=== PATIENT | male | born 1950 | race Caucasian/White ===

== ENCOUNTER 2018-01-27 10:33 | Inpatient (IN) | payer MEDICARE, OTHER ==
[2018-01-27 11:09] LABS: #Lymphocytes 0.8 thou/uL (1.20-3.40); #Monocytes 0.9 thou/uL (0.11-0.59); #Neutrophils 14.3 thou/uL (1.40-6.50); %Eosinophils 0.2 % (0.0-10.0); %Monocytes 5.4 % (0.0-10.0); %Neutrophils 89.4 % (42.0-75.0); Hemoglobin 11.5 g/dL (14.0-18.0); Mean Corpuscular HGB CONC 34.8 g/dL (32.0-36.0); Mean Corpuscular Hemoglobin 31.7 pg (27.0-31.0); Mean Corpuscular Volume 91.1 fL (78.0-98.0); Mean Platelet Volume 6.5 fL (7.4-10.4); Platelet Count 215 thou/uL (130-400); RBC Distribution Width 13.7 % (11.5-14.5); Red Blood Cell (RBC) Count 3.61 mill/uL (4.70-6.10)
[2018-01-27] MEDS ORDERED: Acetaminophen 500 MG TAB ONE ×2 (11:25→17:08)
[2018-01-27 11:30] LABS: Bilirubin Negative (Negative); Blood, Urine Moderate (Negative); Clarity CLOUDY (Clear); Glucose, Urine (Dipstick) Negative (Negative); Leukocyte Moderate (Negative); Nitrite Negative (Negative); Protein, Urine (Dipstick) Trace mg/dL (Neg-Trace); Specific Gravity, Urine 1.017 (1.002-1.036); Urobilinogen 0.2 mg/dL (0.2-1.0)
[2018-01-27 11:33] LABS: Bacteria/HPF None Seen HPF (None Seen); Hyaline Casts/LPF 4-6 HYALINE CAST LPF (0-3 Hyaline); Pathc Cast-AUWi Flag 1.16 (0-2.49); Squamous Epithelial 0-3 HPF (0-3); WBC/HPF 21-50 HPF (0-3)
[2018-01-27 11:37] LABS: ALT (SGPT) 15 U/L (8-55); AST (SGOT) 48 U/L (5-34); Albumin 3.9 g/dL (3.4-4.8); Alkaline Phosphatase 602 U/L (40-150); Anion Gap 19 mmol/L (10-20); BUN (Urea Nitrogen) 69 mg/dL (8.4-25.7); Calc. Creatinine Clearance 0 mL/min (70-130); Calcium 10.3 mg/dL (7.8-10.44); Carbon Dioxide 22 mmol/L (23-31); Chloride 91 mmol/L (98-107); Estimated GFR-MDRD 19; Globulin 3.4 g/dL (2.4-3.5); Glucose 116 mg/dL (80-115); Potassium 3.5 mmol/L (3.5-5.1); Protein, Total 7.3 g/dL (5.8-8.1); Sodium 128 mmol/L (136-145)
[2018-01-27] MEDS ORDERED: cefTRIAXone\\ROCEPHIN 2 GM in Sodium Chloride 0.9% 100 ML IVPB ONE (11:45)
--- NOTE | 2018-01-27 11:57 | RAD ---
PORTABLE CHEST 1 VIEW: Date: 01/27/18 Time: 1031 hours HISTORY: Prostate cancer. Patient finished antibiotics for recent UTI. Low back pain. FINDINGS: The heart size is normal. No lobar consolidation, pneumothoraces, or pleural effusions are seen. IMPRESSION: No evidence of acute cardiopulmonary process. POS: OFF
[2018-01-27] MEDS ORDERED: Sodium Chloride 0.9% 0 ML ONE (12:01)
[2018-01-27] MEDS ORDERED: cefTRIAXone\\ROCEPHIN 2 GM VIAL ONE (12:01)
--- NOTE | 2018-01-27 17:30 | HP ---
DATE OF ADMISSION: 01/27/2018 PRIMARY CARE PHYSICIAN: Patient follows [facility]. CHIEF COMPLAINT: Generalized weakness with fever and chills of 1-day duration. HISTORY OF PRESENT ILLNESS: The patient is a 67-year-old male with prostate cancer, chronic urinary retention with indwelling Zurita catheter, presented to the emergency room with above complaint. Approximately 10 years ago, the patient was diagnosed with prostate cancer. He is currently followed by urologist at [facility]. Over the last 1 year, the patient has indwelling Zurita catheter. Approximately 4-5 days ago, the patient had problems with the Zurita catheter and he discontinued it. He had diffi culty urinating over the weekend. Over the last 24 hours or so, the patient started having fever, ch ills with generalized weakness. He also had some flank pain over the left. No nausea, vomiting, federico phoresis, cough, shortness of breath, wheezing, skin rash reported. He denies any hematuria or dysur ia. Two weeks ago, he was diagnosed with UTI, which was treated as outpatient. He is unable to reca ll the antibiotic name. In the emergency room, his initial vital signs showed temperature of 103.2, respiration 19, pulse rat e of 116 with blood pressure of 117/77 with O2 saturation 97% on room air. He received IV fluids wit h gentamicin and ceftriaxone in the emergency room. PAST MEDICAL HISTORY: 1. Prostate cancer diagnosed 10 years ago. 2. Familial tremors. 3. Hypertension. 4. Degenerative joint disease. PAST SURGICAL HISTORY: Right wrist surgery. ALLERGIES: No known drug allergies. CURRENT HOME MEDICATIONS: Per ER list, the patient is on lisinopril/HCTZ, aspirin, finasteride, Flom ax, and Colace. SOCIAL HISTORY: The patient currently lives at home with family. He ambulates with the help of a ca ne. He chews tobacco. Denies smoking. Drinks alcohol socially. Denies any drug use. FAMILY HISTORY: Positive for familial tremors. REVIEW OF SYSTEMS: The following complete review of systems was negative, unless otherwise mentioned in the HPI or below: Constitutional: Weight loss or gain, ability to conduct usual activities. Skin: Rash, itching. Eyes: Double vision, pain. ENT/Mouth: Nose bleeding, neck stiffness, pain, tenderness. Cardiovascular: Palpitations, dyspnea on exertion, orthopnea. Respiratory: Shortness of breath, wheezing, cough, hemoptysis, fever or night sweats. Gastrointestinal: Poor appetite, abdominal pain, heartburn, nausea, vomiting, constipation, or diarrhea. Genitourinary: Urgency, frequency, dysuria, nocturia. Musculoskeletal: Pain, swelling. Neurologic/Psychiatric: Anxiety, depression. Allergy/Immunologic: Skin rash, bleeding tendency. PHYSICAL EXAMINATION: VITAL SIGNS: As discussed above. GENERAL: A 67-year-old male with tachycardia and fever. HEENT: Head atraumatic, normocephalic. Sclerae are anicteric. Moist mucous membrane, no oral lesio n. NECK: Supple, no JVD, no carotid bruit. LUNGS: Essentially clear to auscultation bilaterally. No wheezing, rales or rhonchi. HEART: S1, S2 present. Tachycardic. No heaves or pulsation noted. ABDOMEN: Soft, nontender, bowel sounds present. There was some flank tenderness on the left. SKIN: Warm and dry. EXTREMITIES: No edema or calf tenderness. PERIPHERAL VASCULAR: Radial pulses palpable bilaterally. MUSCULOSKELETAL: No joint swelling or tenderness. NEUROLOGIC: Grossly nonfocal, moves all four extremities. PSYCHIATRIC: Alert, awake, oriented x3. PERIPHERAL VASCULAR: Radial pulses palpable bilaterally. MUSCULOSKELETAL: No joint swelling or tenderness. DIAGNOSTIC FINDINGS: EKG by my review showed sinus tachycardia with premature ventricular complex. Chest x-ray by my review was negative for infiltrate or edema. LABORATORY DATA: CBC showed WBC 16.0 with hemoglobin 11.5, hematocrit 32.9, platelet count of 215, n eutrophils 89.4. Chemistries showed sodium 128, potassium 3.5, chloride 91, bicarbonate 22, BUN 69, creatinine 3.26, alkaline phosphatase 602. Urinalysis showed 21-50 wbc's with moderate leukocyte est erase, no bacteria was seen, it showed hyaline cast. Chest x-ray by my review as discussed above. IMPRESSION AND PLAN: 1. Sepsis secondary to urinary tract infection/acute pyelonephritis. 2. Chronic urinary retention with indwelling Zurita catheter. Please note that patient removed Zurita catheter 4 days ago without seeking medical attention. 3. Acute kidney injury. Baseline creatinine unknown. 4. Hyponatremia. 5. Metabolic acidosis, probably secondary to renal failure. 6. Elevated alkaline phosphatase of unclear etiology. 7. Anemia, suspected chronic. MCV was 91.1. 8. Familial tremors. 9. Hypertension. 10. Sinus tachycardia with occasional premature ventricular contractions. 11. Generalized weakness and fatigue secondary to #1. 12. Degenerative joint disease. The patient denies any NSAIDs. 13. History of prostate cancer. PLAN: The patient will be monitored on the telemetry unit. We will continue aggressive IV hydration . Zurita catheter has been placed. The patient had approximately 700 mL urine output per verbal repo rt. We will consult Infectious Disease and Urology. Blood and urine cultures have been sent. He re ceived ceftriaxone and gentamicin. We will start him on vancomycin and meropenem for possible ESBL U TI. We will change meropenem to a different antibiotic based on the cultures. We will hold lisinopr il/HCTZ due to acute kidney injury. Renal stone protocol has been done, report pending at this time. We will continue Flomax and finasteride. Plan of care was discussed with the patient in detail. He stated understanding.
--- NOTE | 2018-01-27 17:32 | CT ---
CT OF ABDOMEN AND PELVIS NONCONTRAST RENAL CALCULUS PROTOCOL 01/27/18 INDICATION: Urosepsis. TECHNIQUE: Per ordering physician request, noncontrast CT exam performed utilizing renal calculus protocol. FINDINGS: There is bilateral retroperitoneal/perinephric fat stranding more pronounced on the right. There is p unctate right urolithiasis localizing to the lower pole right renal collecting system. There is minim al prominence of each renal collecting system. Urinary bladder is decompressed with an indwelling Fol ey catheter and presumed iatrogenic air related to the catheter. The solid abdominal viscera is limit ed in assessment without IV contrast administration. Patchy opacities are seen at the lung bases bila terally. There is mild pleural based density at each lung base. Punctate hypoattenuation of the right hepatic lobe is too small to further characterize. There is scattered vascular disease. Enlarged lym ph nodes of the retroperitoneum are present, incompletely evaluated. There is diffuse osseous heterog eneity with mixed areas of sclerosis and lucency. Prostate gland is enlarged with calcification. Scattered mild ascites is present. IMPRESSION: 1. Bulky retroperitoneal adenopathy. Findings are concerning for malignant process such as lymph cheryl versus metastatic disease. 2. Diffuse abnormal heterogeneity of the osseous structures containing mixed lytic and sclerotic appearance concerning for metastatic process. 3. Urolithiasis localizing to the lower pole right kidney. RECOMMENDATIONS: For the abnormal bone findings, recommend whole body bone scan to further evaluate. For the abnormal soft tissue densities, presumably adenopathy of the retroperitoneum, recommend follo wup with contrast enhanced CT abdomen and pelvis. Code T POS: NICOLA
[2018-01-27] MEDS ORDERED: Ondansetron ODT 4 MG TAB SL PRN (17:55)
[2018-01-27] MEDS ORDERED: Acetaminophen 325 MG TAB PO PRN (17:55)
[2018-01-27] MEDS ORDERED: Ondansetron HCl/PF 4 MG/2 ML Vial IVP PRN ×2 (17:55→17:56)
[2018-01-27] MEDS ORDERED: Sodium Chloride 0.9% 1,000 ML IV SCH (17:55)
[2018-01-27] MEDS ORDERED: cloNIDine 0.1 MG TAB PO PRN (17:56)
[2018-01-27] MEDS ORDERED: Labetalol HCl 100 MG/20 ML VIAL SLOW IVP PRN (17:56)
[2018-01-27] MEDS ORDERED: Ondansetron ODT 4 MG TAB PO PRN (17:56)
[2018-01-27] MEDS ORDERED: Vancomycin HCl 1 GM in Premix Bag 1 BAG IVPB SCH ×2 (17:56→18:00)
[2018-01-27] MEDS ORDERED: Calcium Carbonate 500 MG ChewTAB PO PRN (17:56)
[2018-01-27] MEDS ORDERED: Vancomycin HCl 1.5 GM in Sodium Chloride 0.9% 250 ML 300 ML IVPB SCH (18:30)
[2018-01-27] MEDS: Sodium Chloride 0.9% 1,000 ML IV SCH (18:54)
[2018-01-27] MEDS: MEROPENEM 1 GM/50 ML 1 GM in Premix Bag 1 BAG IVPB SCH (21:37)
[2018-01-27] MEDS: Tamsulosin HCl 0.4 MG CAP PO SCH (21:39)
[2018-01-27] MEDS: Famotidine 20 MG TAB PO SCH (21:39)
[2018-01-27] MEDS: Heparin 5,000 UNITS/ML VIAL SC SCH (21:44)
[2018-01-28] MEDS: Sodium Chloride 0.9% 1,000 ML IV SCH ×2 (03:23→03:53)
[2018-01-28] MEDS: Acetaminophen 325 MG TAB PO PRN ×4 (03:43→15:47)
[2018-01-28 05:16] LABS: #Lymphocytes 0.6 thou/uL (1.20-3.40); #Monocytes 0.7 thou/uL (0.11-0.59); #Neutrophils 8.9 thou/uL (1.40-6.50); %Eosinophils 0.1 % (0.0-10.0); %Lymphocytes 5.6 % (21.0-51.0); %Monocytes 6.7 % (0.0-10.0); %Neutrophils 87.6 % (42.0-75.0); Mean Corpuscular HGB CONC 34.9 g/dL (32.0-36.0); Mean Corpuscular Hemoglobin 31.7 pg (27.0-31.0); Mean Corpuscular Volume 90.6 fL (78.0-98.0); Mean Platelet Volume 6.6 fL (7.4-10.4); Platelet Count 157 thou/uL (130-400); RBC Distribution Width 13.6 % (11.5-14.5); Red Blood Cell (RBC) Count 2.85 mill/uL (4.70-6.10); White Blood Cell (WBC) Count 10.1 thou/uL (4.8-10.8)
[2018-01-28 05:34] LABS: Albumin 2.9 g/dL (3.4-4.8); Anion Gap 11 mmol/L (10-20); BUN (Urea Nitrogen) 45 mg/dL (8.4-25.7); BUN/Creatinine Ratio 30.61; Calc. Creatinine Clearance 65 mL/min (70-130); Calcium 8.1 mg/dL (7.8-10.44); Carbon Dioxide 23 mmol/L (23-31); Chloride 98 mmol/L (98-107); Estimated GFR-MDRD 48; Glucose 163 mg/dL (80-115); Phosphorus 2.4 mg/dL (2.3-4.7); Potassium 2.2 mmol/L (3.5-5.1); Sodium 130 mmol/L (136-145)
[2018-01-28] MEDS: Famotidine 20 MG TAB PO SCH ×2 (08:40→20:48)
[2018-01-28] MEDS: Finasteride 5 MG TAB PO SCH (08:40)
[2018-01-28] MEDS: MEROPENEM 1 GM/50 ML 1 GM in Premix Bag 1 BAG IVPB SCH (08:53)
[2018-01-28] MEDS: Heparin 5,000 UNITS/ML VIAL SC SCH ×2 (11:06→20:48)
[2018-01-28] MEDS: NS 0.9% w/ 20 MEQ KCL 1,000 ML/1,000 ML BAG IV SCH ×4 (11:12→20:51)
--- NOTE | 2018-01-28 12:20 | CON ---
DATE OF CONSULTATION: 01/28/2018 REASON FOR CONSULTATION: Consultation was requested for retention and presumed urosepsis. HISTORY OF PRESENT ILLNESS: The patient is a 67-year-old gentleman with a confusing urologic history, but best he can tell me was about 10 years ago he had a very high PSA, cannot give the actual number and had a prostate biopsy that he is quite sure was positive; however, they did not recommend treatment despite his young age. They told him you do not have to worry about trouble for at least 8-10 years, and he continued to be followed. But the patient cannot remember the last time his PSA was checked. In trying to piece together that without records I suspect that he had very low volume, low grade, Darian score on the biopsy that was not sales representative raw fibers of the elevated PSA and therefore probably just had significant BPH; however, it does not sound like his BPH was ever addressed other than with meds. In August of this year, he went into retention and has had a catheter since which was changed a couple of times. About 4-5 days ago, it became blocked, so he just removed it himself. He has not voided since, but he has been leaking and wearing a brief because of that. Then, he started to have fever, chills, nausea, and vomiting as well as loose stools which is all new, so he was admitted in retention with a catheter placed for a large amount and started on IV antibiotics. PAST MEDICAL HISTORY: Significant for the above-mentioned prostate cancer, hypertension, DJD and arthritis. PAST SURGICAL HISTORY: Right wrist broken previously. ALLERGIES: None. MEDICATIONS: Include lisinopril, hydrochlorothiazide, aspirin, finasteride, Flomax, Colace. SOCIAL HISTORY: He chews tobacco, usually just one mouth full a day. I have cautioned him against this. He has never smoked cigarettes, but he has an occasional cigar. He has used no drugs. He has very few alcohol beverages on a routine basis. REVIEW OF SYSTEMS: He ambulates with a cane due to significant arthritis in his knee which he feels also has increased and involves his hip. He did have fever and chills with overall weakness and the loose stool. He has shortness of breath; this is new since he started feeling unwell. Otherwise, he does not normally have this nor any chest pain or cough or reflux. He has never had a colonoscopy. FAMILY HISTORY: Significant for familial tremors. Mother at 82 of heart disease. Dad at 29 of an accident. There is no prostate cancer or colon cancer in his history. 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 PHYSICAL EXAMINATION: 103.2/99.2/most recent 102.9 109/59, 115, 98%RA GENERAL: He is comfortable in the bed and aides are helping to change and clean him up. He is alert and oriented. HEENT: He has no scleral icterus. NECK: No JVD. SKIN: His skin is diaphoretic, but not with significant pallor, no hyperemia. CARDIOVASCULAR: Regular rate and rhythm without murmurs, gallops or rubs, but decreased heart sounds throughout. He was not tachycardic during my exam. LUNGS: Clear to auscultation bilaterally. ABDOMEN: Soft, nondistended, normal bowel sounds. Nontender. : Testes were descended bilaterally without masses. Phallus is uncircumcised without lesions and retracted and without concerns for phimosis and then reduced again. Zurita catheter was in place and ensured that the balloon was not stuck in the prostate and secured appropriately. RECTAL: Digital rectal exam revealed an enlarged prostate that was flat-- concerning for sidewall fixation, firm with some induration, but no obvious cancer nodules noted. EXTREMITIES: He had no lower extremity edema. LABORATORY DATA: Reveal a white count has come down from 16 to 10 and anemia that is worsened with hydration to 9.0 and 25.9. BUN and creatinine which is improved. He was 3.26 with his creatinine on admission, now it is 1.47. He is hypokalemic at 2.2. Urinalysis upon admission showed 21-50 WBCs, 7-10 RBCs, no bacteria and 0-3 squamous cells, but the culture is already growing nonheme strep with speciation and sensitivities pending. CT scan from 01/27/2018 which was reviewed personally without contrast showed small stone debris in the bladder and a 5 x 1 mm right lower pole stone. The Zurita was also in the bladder and is relatively decompressed with an enlarged prostate. There was concern for retroperitoneal lymphadenopathy. There was no obvious pelvic or obturator nodes, but the prostate was enlarged. There was also concern for diffuse osseous heterogeneity with mixed sclerosis and lucency. ASSESSMENT AND PLAN: A 67-year-old male with a confusing history of which I would greatly benefit from having his prior records. [facility] but I suspect he had low grade low volume disease 10 years ago after pursuing an elevated PSA which is most likely related to enlarged prostate and bladder outlet obstruction who now has recent retention and inability to void. He went into renal failure and sepsis when the catheter was not replaced, after he removed it 4 to [address] scan and SHE[place]LEY are concerning for significant cancer though. Continue indwelling. Continue IV antibiotics, get prior records, get PSA and monitor for now. [facility]
[2018-01-28] MEDS: cefTRIAXone\\ROCEPHIN 2 GM in Sodium Chloride 0.9% 100 ML IVPB SCH (15:45)
[2018-01-28 17:54] LABS: Potassium 3.5 mmol/L (3.5-5.1)
[2018-01-28] MEDS ORDERED: Vancomycin HCl 1.5 GM in Sodium Chloride 0.9% 250 ML 300 ML IVPB SCH (19:00)
[2018-01-28] MEDS: Tamsulosin HCl 0.4 MG CAP PO SCH (20:48)
--- NOTE | 2018-01-28 22:16 | PDOC.PN ---
- Subjective Encounter Start Date: 01/28/18 Encounter Start Time: 10:15 Patient seen and examined for Sepsis. Feels better. No new complaints. No overnight events - Objective Resuscitation Status: Resuscitation Status FULL:Full Resuscitation Vital Signs & Weight: Vital Signs (12 hours) Temp Pulse Pulse Pulse Pulse Resp BP 01/28/18 20:00 99.1 F 95 18 01/28/18 16:00 99.3 F 122 H 18 01/28/18 11:38 98.2 F 96 17 01/28/18 11:28 97 101 H 100 92/55 L BP BP BP BP Pulse Ox Pulse Ox 01/28/18 20:00 95/55 L 100 01/28/18 16:00 107/59 L 95 01/28/18 11:38 92/50 L 95 01/28/18 11:28 97/52 L 87/52 L 96 Weight Admit Weight 205 lb 12.8 oz Weight 205 lb 12.8 oz I&O: 01/27/18 01/28/18 01/29/18 06:59 06:59 06:59 Intake Total 770 2340 Output Total 2700 1850 Balance -1930 490 Result Diagrams: 01/29/18 05:03 01/29/18 05:03 Additional Labs: Microbiology 01/27/18 11:15 Urine ramirez catheter Urine Culture - Final Enterococcus faecalis 01/27/18 11:00 Venous blood - Left Hand Blood Culture - Preliminary Gram Positive Cocci 01/27/18 10:59 Venous blood - Left Hand Blood Culture - Preliminary Gram Positive Cocci Laboratory Tests 01/28/18 04:56 Potassium 2.2 L* Radiology Reviewed by me: Yes (CT abd - Retroperitoneal lymphadenopathy) EKG Reviewed by me: Yes (Tele ST) Phys Exam - Physical Examination Constitutional: NAD Neck: no JVD Respiratory: no wheezing, no rales, no rhonchi Symmetrical Cardiovascular: RRR, no rub No heaves/pulsations Gastrointestinal: soft, non-tender, no distention, positive bowel sounds Musculoskeletal: no edema Neurological: non-focal, normal sensation, moves all 4 limbs Psychiatric: normal affect, A&O x 3 Dx/Plan - Plan DVT proph w/SCDs IMPRESSION: 1. Sepsis secondary to urinary tract infection/acute pyelonephritis with bacteremia 2. Chronic urinary retention with indwelling Ramirez catheter. Please note that patient removed Ramirez catheter 4 days ago without seeking medical attention. 3. Acute kidney injury. 4. Hyponatremia/ Hypokalemia/Hypomagnessemia 5. Metabolic acidosis, probably secondary to renal failure. 6. Elevated alkaline phosphatase of unclear etiology. 7. Anemia, suspected chronic. MCV was 91.1. 8. Familial tremors. 9. Hypertension. 10. Sinus tachycardia with occasional premature ventricular contractions. 11. Generalized weakness and fatigue secondary to #1. 12. Degenerative joint disease. The patient denies any NSAIDs. 13. History of prostate cancer. PLAN: * Await Urology/ID input * Cont Atbx * Cont Cardizem PO * Replace electrolytes * Adjust IVF * Cont Flomax Review of Systems - Review of Systems Respiratory: negative: Cough, Dry, Shortness of Breath, Hemoptysis, SOB with Excertion, Pleuritic Pain, Sputum, Wheezing Cardiovascular: negative: chest pain, palpitations, orthopnea, paroxysmal nocturnal dyspnea, edema, light headedness, other - Medications/Allergies Allergies/Adverse Reactions: Allergies Allergy/AdvReac Type Severity Reaction Status Date / Time No Known Allergies Allergy Unverified 01/27/18 11:36 Medications: Current Medications Acetaminophen (Tylenol) 650 mg PO Q4H PRN PRN Reason: Headache/Fever or Pain Last Admin: 01/28/18 15:47 Dose: 650 mg Bicalutamide (Casodex) 50 mg PO DAILY [facility] Calcium Carbonate (Tums) 1,000 mg PO Q4H PRN PRN Reason: Heartburn or Indigestion Clonidine (Catapres) 0.1 mg PO Q4H PRN PRN Reason: Systolic BP > 180 Diltiazem HCl (Cardizem) 30 mg PO TID [facility] Famotidine (Pepcid) 20 mg PO BID [facility] Last Admin: 01/28/18 20:48 Dose: 20 mg Finasteride (Proscar) 5 mg PO DAILY [facility] Last Admin: 01/28/18 08:40 Dose: 5 mg Heparin Sodium (Porcine) (Heparin) 5,000 units SC BID [facility] Last Admin: 01/28/18 20:48 Dose: 5,000 units Potassium Chloride/Sodium Chloride (Ns 0.9% W/ 20 Meq Kcl) 1,000 ml in 1,000 mls @ 150 mls/hr IV .Q6H40M [facility] Last Admin: 01/28/18 20:51 Dose: 1,000 mls Vancomycin HCl 1.5 gm/ Sodium (Chloride) 300 mls @ 200 mls/hr IVPB 1900 [facility] Last Admin: 01/28/18 18:36 Dose: 300 mls Ceftriaxone Sodium 2 gm/ (Sodium Chloride) 100 mls @ 200 mls/hr IVPB 1600 [facility] Last Admin: 01/28/18 15:45 Dose: 100 mls Ketoconazole (Nizoral) 400 mg PO TID [facility] Labetalol HCl (Normodyne) 10 mg SLOW IVP Q4H PRN PRN Reason: Systolic BP > 180 Miscellaneous Medication (Pharmacy To Dose) 1 each IVPB ONE PRN PRN Reason: Pharmacy to dose Stop: 02/26/18 18:07 Ondansetron HCl (Zofran Odt) 4 mg PO Q6H PRN PRN Reason: Nausea/Vomiting Ondansetron HCl (Zofran) 4 mg IVP Q6H PRN PRN Reason: Nausea/Vomiting Potassium Chloride (Klor-Con) 40 meq PO BID-[facility] Last Admin: 01/28/18 15:44 Dose: 40 meq Sodium Chloride (Flush - Normal Saline) 10 ml IVF PRN PRN PRN Reason: Saline Flush Tamsulosin HCl (Flomax) 0.4 mg PO [facility] Last Admin: 01/28/18 20:48 Dose: 0.4 mg
--- NOTE | 2018-01-28 23:43 | CON ---
DATE OF CONSULTATION: 01/28/2018 REASON FOR CONSULTATION: Bacteremia. HISTORY OF PRESENT ILLNESS: A 67-year-old patient apparently with the first admission to this hospit al at least in a while with a history of prior prostate cancer diagnosed 10 years ago followed at [place], familial tremors and hypertension, who developed fever and chills for 1 day before admission. [facility] Zurita catheter and above 4 to 5 days before admission developed some problems with the catheter and the catheter was removed, the patient himself removed it or somebody e lse. The patient obviously had urinary difficulties over the weekend and then developed fever, chill s, weakness, flank pain. Initial findings included temperature 103, respirations 19, O2 sat 97%, BP 117/77, pulse 116. His exam showed clear lungs. Normal heart except for tachycardia. Abdomen is no t distended or tender. There is flank tenderness in the left side. Skin was normal. The initial ite cell count 16,000. Currently, he has essential tremors with the head. He has some headaches. N o visual symptoms, sore throat, odynophagia or dysphagia. No chest pain, no abdominal pain, no joint symptoms. He has chronic back pain which is unchanged. PAST MEDICAL HISTORY: Prostate cancer diagnosed 10 years at the [place] and followed by a urologist at [facility], familial tremors, hypertension, DJD, chronic indwelling Zurita catheter for management of urinar y outflow obstruction. PAST SURGICAL HISTORY: Right wrist surgery. ALLERGIES: None. MEDICATION LIST: Tylenol, Casodex, Tums, Catapres, Cardizem, Pepcid, Proscar, heparin, Nizoral, ritu penem, Zofran, tamsulosin, vancomycin. FAMILY HISTORY: Noncontributory. SOCIAL HISTORY: Current smoker. No IV drug use. Lives with family. PHYSICAL EXAMINATION: VITAL SIGNS: T-max 102.9, currently 98.2, blood pressure 92/50, pulse 96, respirations 17, O2 sat 95 %. GENERAL: Awake, alert, chronic ____ tremors. SKIN: Peripheral IV access and has a Zurita catheter inserted. NECK: No lymphadenopathy. HEENT: Ocular movements conjugate. Oral cavity with moist mucosa with some debris in the oral cavit y. NECK: Supple, no jugular vein distention. LUNGS: With symmetric air entry without crackles or wheezing. CARDIOVASCULAR: S1, S2. Regular rate without murmurs. ABDOMEN: Soft, nondistended or tender. Some back tenderness with mild ____. No joint inflammatory activity. Plantar responses are flexor. No clonus, no edema. Pulses 1+ in dorsalis pedis. NEUROLOGIC: He is awake, oriented and follow commands, good recollection. LABORATORY DATA AND IMAGING DATA: White cell count is down from 16-10, hemoglobin 9, MCV 90, platele ts 157, sodium 130, creatinine 1.47, which is down from admission, AST 48, ALT 15, alkaline phosphata se 66, PSA 1600. Urinalysis with 21-50 wbc's. Microbiology with non-hemolytic strep in urine and 2 sets of blood cultures with gram positive cocci, likely the same organism isolated from urine. The p atient had an abdomen and pelvis CT which demonstrated bulky retroperitoneal adenopathy, heterogeneit y of osseous structures with lytic and sclerotic metastatic process, urolithiasis, but no obstruction . ASSESSMENT: 1. Prostate cancer, likely metastatic to bone and lymph nodes. 2. Urinary obstruction with recent removal of Zurita catheter and then development of sepsis due to A lpha hemolytic streptococcus. PLAN: We will switch him to Rocephin. Continue vancomycin until susceptibility profile of his relea se and that we should improve quickly with relief of obstruction and antimicrobial therapy and hopefu lly transition to oral antimicrobials for discharge planning.
[2018-01-29] MEDS: Acetaminophen 325 MG TAB PO PRN (00:59)
[2018-01-29] MEDS: NS 0.9% w/ 20 MEQ KCL 1,000 ML/1,000 ML BAG IV SCH (04:31)
[2018-01-29 05:34] LABS: #Lymphocytes 0.8 thou/uL (1.20-3.40); #Monocytes 0.6 thou/uL (0.11-0.59); #Neutrophils 7.9 thou/uL (1.40-6.50); %Eosinophils 0.2 % (0.0-10.0); %Lymphocytes 8.2 % (21.0-51.0); %Monocytes 6.7 % (0.0-10.0); %Neutrophils 84.9 % (42.0-75.0); Hemoglobin 9.2 g/dL (14.0-18.0); Mean Corpuscular Hemoglobin 31.2 pg (27.0-31.0); Mean Corpuscular Volume 91.9 fL (78.0-98.0); Mean Platelet Volume 6.8 fL (7.4-10.4); Platelet Count 167 thou/uL (130-400); RBC Distribution Width 13.7 % (11.5-14.5); Red Blood Cell (RBC) Count 2.94 mill/uL (4.70-6.10); White Blood Cell (WBC) Count 9.3 thou/uL (4.8-10.8)
[2018-01-29 05:46] LABS: Albumin 2.8 g/dL (3.4-4.8); Anion Gap 12 mmol/L (10-20); BUN (Urea Nitrogen) 30 mg/dL (8.4-25.7); BUN/Creatinine Ratio 31.25; Calc. Creatinine Clearance 101 mL/min (70-130); Calcium 8.5 mg/dL (7.8-10.44); Carbon Dioxide 23 mmol/L (23-31); Chloride 101 mmol/L (98-107); Estimated GFR-MDRD 78; Glucose 119 mg/dL (80-115); Magnesium 1.4 mg/dL (1.6-2.6); Phosphorus 2.3 mg/dL (2.3-4.7); Sodium 133 mmol/L (136-145)
[2018-01-29 05:50] LABS: Potassium 2.9 mmol/L (3.5-5.1)
[2018-01-29] MEDS ORDERED: Magnesium Sulfate 4 GM in Sodium Chloride 0.9% 250 ML 250 ML IVPB SCH (07:45)
[2018-01-29] MEDS: Finasteride 5 MG TAB PO SCH (09:04)
[2018-01-29] MEDS: Heparin 5,000 UNITS/ML VIAL SC SCH ×2 (09:04→21:10)
[2018-01-29] MEDS: Famotidine 20 MG TAB PO SCH ×2 (09:04→21:10)
[2018-01-29] MEDS: Bicalutamide 50 MG TAB PO SCH (09:08)
--- NOTE | 2018-01-29 12:26 | PRG ---
DATE OF SERVICE: 01/29/2018 Yesterday, I had reviewed getting a PSA with the patient and this came back significantly elevated, so I again spoke with the patient and reviewed what that meant and how I would start ketaconazole and Casodex and anticipate Lupron in approximately 10 days; however, the ketaconazole was not available directly so the pharmacy is still working on this. The Casodex was initiated and for this reason I will also get Oncology involved. They have already been consulted by Dr. Becerra, and I attempted to discuss the plan with them, but was only able to leave a message. I reviewed his past history with the patient again since he is a little less foggy in the head today. He believes that he did not have metastatic disease when he was originally diagnosed. He was given options for treatment, but apparently encouraged to monitor and delay treatment until he was symptomatic. I still do not have records, and I am not really sure of such recommendations as being a standard of care. Regardless, at this time we reviewed how he clearly has metastatic prostate cancer with a poor prognosis in the long run. However, as long as it is hormonally sensitive--as the vast majority of all prostate cancers are initially-- he will improve. He will feel better over the next few months If and when the prostate cancer learns how to replicate without testosterone, which could be anywhere from months to years from now, then he could start to feel poorly again. I discussed how Oncology will be involved to determine whether additional medication (Xtandi) may be beneficial early on versus in a delayed fashion. I also let Oncology know that I do not need further imaging as it will not change my course of treatment currently; they may wish to order a bone scan or something further at this time. I reviewed with the patient how his right knee and hip pain may be related to cancer, and so, it should significantly improve. We also reviewed how his obstruction could be related to cancer, and so could also could improve over the next month or two. We reviewed removing the catheter as an outpatient in 3-6 weeks and attempting voiding trials. We also reviewed CIC, and if he is unable to void at follow up , then he can learn this. I then reviewed the likely course of the natural history of prostate cancer: how it initially responds to hormone treatment, but at some point becomes hormone resistant and usually leads to in two main ways. These are bony lesions with significant pain and/or urinary obstruction with local invasion of the ureteral orifices. We reviewed how renal failure could occur if that happens, and it is a much less painful way to . We also reviewed how he has the option at that time if it does arise to get percutaneous nephrostomy tubes to preserve his renal function. I reviewed how these scenarios are not likely to occur anytime soon, but are something for him to be thinking about and prepare himself, so he can know if he is in that scenario what options he has and would like to choose. He should communicate these to everyone involved including his family. OBJECTIVE: VITAL SIGNS: T-max has only been 100.2 and now 97.7, heart rate in the 90s, satting 93-100% on room air, blood pressure stable at 123/65 and he has put out more than 3 liters over the last 24 hours with yellow urine draining from the catheter. LABORATORY DATA: Laboratory values reveal an improved H&H, a further improved creatinine at now 0.96. Potassium is improved. His urine and blood cultures have all come back for Enterococcus and per Dr. Wang's note he will handle these antibiotics and the course length of time. ASSESSMENT AND PLAN: We have a 67-year-old male admitted with renal failure and urosepsis secondary to retention from metastatic prostate cancer with a PSA of over 1600 improving with IV antibiotics and Zurita catheter drainage only. He should continue the indwelling upon discharge and follow up in the office for a voiding trial. The Lupron can be given by my office or Oncology. I would recommend this starting about day 10 from the start of the Casodex. I would not send him out on the ketaconazole, but only give it to him in house if available in house. I would send him out on Casodex 50 mg daily to be continued at least through the first Lupron injection. I will defer further medications, intervention or further studies per Oncology. (I will be out of town Friday and Friday and have reviewed the case with Dr. Cardoza if there are any acute urological issues that arise). Continue antibiotics per Dr. Wang. Continue tamsulosin and finasteride as he was taking as an outpatient. Continue Casodex and continue it as an outpatient upon discharge. Anticipate follow up in the office for both Lupron either with me or Oncology and anticipate followup with me for a voiding trial in approximately 2-3 weeks after Lupron injection. MTDD
--- NOTE | 2018-01-29 14:35 | CON ---
DATE OF CONSULTATION: 01/29/2018 REASON FOR CONSULTATION: Prostate cancer. HISTORY OF PRESENT ILLNESS: Mr. Owusu is a 67-year-old male who presented to the emergency room for urinary retention. He has a history of elevated PSA that has been monitored by the [facility] over the past 10 years. Earlier this year, he had a Zurita catheter placed for urinary retention. He states it was clotted, so he pulled it out approximately 4 days ago. He then began to have fever. He was admitted for urosepsis and started on antibiotics. He is followed by the [facility] doctor in [place]. He had a PSA performed on this admission which was 1647. Dr. Stafford was consulted and has seen the patient and started Casodex. He had a CT of the abdomen and pelvis which showed retroperitoneal lymphadenopathy consistent with metastatic disease. It was bulky. He also had mixed lytic and sclerotic appearance of his bones on scan. Patient lives by himself in [place]. He has a familiar tremor. He states over the past several weeks, he has gotten progressively weaker to the point that he is now bedridden and has not walked in several days. He denies any chest pain or shortness of breath. No abdominal pain. PAST MEDICAL HISTORY: 1. Adenocarcinoma of the prostate, [place] score 6, 3+3, 2013. 2. Essential tremor. 3. Hypertension. 4. Degenerative joint disease. PAST SURGICAL HISTORY: 1. Prostate biopsy. 2. Wrist surgery. ALLERGIES: No known drug allergies. HOME MEDICATIONS: 1. Aspirin 81 mg daily. 2. Finasteride 5 mg daily. 3. Lisinopril/hydrochlorothiazide daily. 4. Flomax 0.4 mg daily. FAMILY HISTORY: Positive for tremors. SOCIAL HISTORY: He is single. He lives alone. No alcohol, tobacco or illicit drug use. Chews tobacco. REVIEW OF SYSTEMS: Ten point review of systems is negative except for noted in HPI. PHYSICAL EXAMINATION: VITAL SIGNS: Temperature is 97.7, pulse is 97, respiratory rate 18, BP is 123/ 65, he is 95% on room air. GENERAL: Well-developed, well-nourished male in no acute distress. HEENT: Normocephalic, atraumatic. Pupils are equal and reactive to light. NECK: Supple. CARDIOVASCULAR: Regular rate and rhythm. LUNGS: Clear. ABDOMEN: Soft, nontender, bowel sounds are positive. EXTREMITIES: There is no clubbing, cyanosis or edema. SKIN: No rash. HEMATOLOGIC: No petechia or purpura. NEUROLOGIC: Nonfocal. LYMPH: There is no palpable lymphadenopathy. PSYCHIATRIC: The patient was alert and oriented and appropriate. PERTINENT LABORATORY DATA AND IMAGING DATA: Current WBCs are 9.3, hemoglobin 9.2, hematocrit 27, platelet count 167,000, 85% neutrophils, 8% lymphocytes. Sodium is 133, potassium 2.9, chloride 101, CO2 is 23, BUN 30, creatinine 0.96, calcium is 8.5, phosphorus 2.3, magnesium 1.4, total bilirubin is 1.0, AST is 48 , ALT is 15, alkaline phosphatase 602, serum total protein is 7.3, albumin 2.8, globulin 3.4. Prostate is 1647.62. Urine is negative for bacteria. Radiology per HPI. ASSESSMENT: Prostate cancer with likely metastasis to the retroperitoneal lymph nodes and possibly bones. PLAN: The patient has been started on Casodex. We will get a Nuclear Med bone scan to look for metastatic disease in the bones. The patient is extremely weak and feels that he cannot go home to live alone. Case management has been consulted for discharge planning. Patient will be discussed with Dr. Elizondo and further recommendations after the bone scan. Thank you for the consult. SRI
--- NOTE | 2018-01-29 14:53 | PDOC.PN ---
- Subjective Encounter Start Date: 01/29/18 Encounter Start Time: 10:30 Patient seen and examined for Sepsis/Bacteremia. No new complaints. No overnight events - Objective Resuscitation Status: Resuscitation Status FULL:Full Resuscitation MAR Reviewed: Yes Vital Signs & Weight: Vital Signs (12 hours) Temp Pulse Pulse Pulse Resp BP BP 01/29/18 12:10 97.9 F 110 H 20 01/29/18 10:18 117 H 111 H 136/60 114/65 01/29/18 07:10 97.7 F 97 18 01/29/18 04:20 97.8 F 89 18 BP Pulse Ox Pulse Ox Pulse Ox 01/29/18 12:10 115/61 93 L 01/29/18 10:18 94 L 88 L 01/29/18 07:10 123/65 95 01/29/18 04:20 108/55 L 93 L Weight Admit Weight 205 lb 12.8 oz Weight 208 lb I&O: 01/28/18 01/29/18 01/30/18 06:59 06:59 06:59 Intake Total 770 3755 Output Total 2700 3550 Balance -1930 205 Result Diagrams: 01/29/18 05:03 01/29/18 05:03 Additional Labs: Laboratory Tests 01/28/18 01/28/18 01/29/18 04:56 09:15 05:03 Potassium 2.2 L* 2.9 L* Magnesium 1.4 L Prostate Specific Ag 1647.62 H EKG Reviewed by me: Yes (Tele SR) Phys Exam - Physical Examination Constitutional: NAD Respiratory: no wheezing, no rhonchi Cardiovascular: RRR, no rub Gastrointestinal: soft, non-tender, positive bowel sounds Musculoskeletal: no edema Neurological: moves all 4 limbs Dx/Plan - Plan DVT proph w/heparin, DVT proph w/SCDs IMPRESSION: 1. Sepsis secondary to Enterococcus UTI/acute pyelonephritis with bacteremia 2. Chronic urinary retention with indwelling Ramirez catheter. 3. Acute kidney injury. improving 4. Hyponatremia/ Hypokalemia/Hypomagnessemia 5. Prostate Cancer with Metastasis 6. Moderate Protein Calorie Malnutrition 7. Back pain - prob due to mets/UTI PLAN: * Cont IV Vancomycin * Cont Atbx * Cont Cardizem PO * Replace electrolytes * Cont current IVF * Cont Flomax/Finasteride * On Ketoconazole * Add [place] for back pain Microbiology 01/27/18 11:15 Urine ramirez catheter Urine Culture - Final Enterococcus faecalis 01/27/18 11:00 Venous blood - Left Hand Blood Culture - Preliminary Enterococcus species 01/27/18 10:59 Venous blood - Left Hand Blood Culture - Preliminary Enterococcus faecalis Review of Systems - Review of Systems Respiratory: negative: Cough, Dry, Shortness of Breath, Hemoptysis, SOB with Excertion, Pleuritic Pain, Sputum, Wheezing Cardiovascular: negative: chest pain, palpitations, orthopnea, paroxysmal nocturnal dyspnea, edema, light headedness, other - Medications/Allergies Allergies/Adverse Reactions: Allergies Allergy/AdvReac Type Severity Reaction Status Date / Time No Known Allergies Allergy Unverified 01/27/18 11:36 Medications: Current Medications Acetaminophen (Tylenol) 650 mg PO Q4H PRN PRN Reason: Headache/Fever or Pain Last Admin: 01/29/18 00:59 Dose: 650 mg Hydrocodone Bitart/Acetaminophen ([place] 5/325) 1 tab PO Q4H PRN PRN Reason: Moderate Pain (4-6) Bicalutamide (Casodex) 50 mg PO DAILY [facility] Last Admin: 01/29/18 09:08 Dose: 50 mg Calcium Carbonate (Tums) 1,000 mg PO Q4H PRN PRN Reason: Heartburn or Indigestion Clonidine (Catapres) 0.1 mg PO Q4H PRN PRN Reason: Systolic BP > 180 Diltiazem HCl (Cardizem) 30 mg PO TID [facility] Last Admin: 01/29/18 09:04 Dose: 30 mg Famotidine (Pepcid) 20 mg PO BID [facility] Last Admin: 01/29/18 09:04 Dose: 20 mg Finasteride (Proscar) 5 mg PO DAILY [facility] Last Admin: 01/29/18 09:04 Dose: 5 mg Heparin Sodium (Porcine) (Heparin) 5,000 units SC BID [facility] Last Admin: 01/29/18 09:04 Dose: 5,000 units Potassium Chloride/Sodium Chloride (Ns 0.9% W/ 20 Meq Kcl) 1,000 ml in 1,000 mls @ 150 mls/hr IV .Q6H40M [facility] Last Admin: 01/29/18 04:31 Dose: 1,000 mls Vancomycin HCl 1.5 gm/ Sodium (Chloride) 300 mls @ 200 mls/hr IVPB 1900 [facility] Last Admin: 01/28/18 18:36 Dose: 300 mls Ceftriaxone Sodium 2 gm/ (Sodium Chloride) 100 mls @ 200 mls/hr IVPB 1600 [facility] Last Admin: 01/28/18 15:45 Dose: 100 mls Ketoconazole (Nizoral) 400 mg PO TID [facility] Labetalol HCl (Normodyne) 10 mg SLOW IVP Q4H PRN PRN Reason: Systolic BP > 180 Miscellaneous Medication (Pharmacy To Dose) 1 each IVPB ONE PRN PRN Reason: Pharmacy to dose Stop: 02/26/18 18:07 Ondansetron HCl (Zofran Odt) 4 mg PO Q6H PRN PRN Reason: Nausea/Vomiting Ondansetron HCl (Zofran) 4 mg IVP Q6H PRN PRN Reason: Nausea/Vomiting Potassium Chloride (Klor-Con) 40 meq PO BID-[facility] Last Admin: 01/29/18 09:04 Dose: 40 meq Senna/Docusate Sodium (Senokot S) 1 tab PO BID [facility] Sodium Chloride (Flush - Normal Saline) 10 ml IVF PRN PRN PRN Reason: Saline Flush Tamsulosin HCl (Flomax) 0.4 mg PO [facility] Last Admin: 01/28/18 20:48 Dose: 0.4 mg
--- NOTE | 2018-01-29 16:44 | NM ---
HISTORY: Prostate cancer. BONE SCAN: 01/29/18 Delayed whole body images obtained. Extensive and too numerous to count bony metastases seen in the calvarium, mandible, maxilla, numerou s ribs, both right and left scapula, right and left humerus, numerous areas in the lumbar spine, sacr um pelvis, and proximal mid right and left femur. In addition, the sternal metastases also seen. IMPRESSION: Calvarial, spinal, rib, humeral, sternal and femoral metastases. POS: [facility]
[2018-01-29] MEDS: HYDROcodone/Acetaminophen 5/325 mg Tablet PO PRN ×2 (16:56→23:32)
[2018-01-29] MEDS: cefTRIAXone\\ROCEPHIN 2 GM in Sodium Chloride 0.9% 100 ML IVPB SCH (16:57)
[2018-01-29] MEDS ORDERED: NS 0.9% w/ 20 MEQ KCL 1,000 ML/1,000 ML BAG IV SCH ×2 (17:52→18:25)
[2018-01-29 18:24] LABS: #Eosinphils 0.1 thou/uL (0.0-0.7); #Lymphocytes 1.1 thou/uL (1.20-3.40); #Monocytes 1.2 thou/uL (0.11-0.59); #Neutrophils 11.1 thou/uL (1.40-6.50); %Basophils 0.1 % (0.0-1.0); %Eosinophils 0.4 % (0.0-10.0); %Lymphocytes 7.9 % (21.0-51.0); %Monocytes 9.2 % (0.0-10.0); %Neutrophils 82.4 % (42.0-75.0); Hemoglobin 10.3 g/dL (14.0-18.0); Mean Corpuscular HGB CONC 35.3 g/dL (32.0-36.0); Mean Corpuscular Hemoglobin 32.1 pg (27.0-31.0); Mean Platelet Volume 6.6 fL (7.4-10.4); Platelet Count 194 thou/uL (130-400); RBC Distribution Width 13.7 % (11.5-14.5); White Blood Cell (WBC) Count 13.5 thou/uL (4.8-10.8)
[2018-01-29] MEDS: Ampicillin 2 GM in Sodium Chloride 0.9% 100 ML IVPB SCH ×2 (18:43→23:34)
[2018-01-29 18:46] LABS: Anion Gap 12 mmol/L (10-20); BUN (Urea Nitrogen) 26 mg/dL (8.4-25.7); Calc. Creatinine Clearance 104 mL/min (70-130); Calcium 8.7 mg/dL (7.8-10.44); Carbon Dioxide 23 mmol/L (23-31); Chloride 100 mmol/L (98-107); Estimated GFR-MDRD 81; Glucose 149 mg/dL (80-115); Potassium 3.7 mmol/L (3.5-5.1); Sodium 131 mmol/L (136-145)
[2018-01-29 18:49] LABS: Troponin I 0.111 ng/mL (< 0.028)
[2018-01-29 18:49] LABS: Actual Bicarbonate (HCO3a) 21.7 mEq/L (22-28); CO2 Tension 29.8 mmHg (35.0-45.0); Hemoglobin (Hb) 10.5 g/dL (14.0-18.0); O2 Tension (PaO2) 77.6 mmHg (> 80.0); pH, Arterial 7.48 (7.35-7.45)
[2018-01-29 18:50] LABS: Analyzer IN Cardio OR; Calcium, Ionized 1.2 mmol/L (1.12-1.30); Puncture Site RBA
--- NOTE | 2018-01-29 19:25 | RAD ---
FRONTAL RADIOGRAPH CHEST 01/29/18 COMPARISON: 01/27/18 HISTORY: Short of breath. FINDINGS: No pneumothorax, pleural fluid focal consolidation, or alveolar edema. Heart and mediastinal contours are stable. Osseous structures are stable. Nonspecific mild perihilar interstitial prominence noted. IMPRESSION: No focal consolidation or alveolar edema. POS: [facility]
[2018-01-29] MEDS: Tamsulosin HCl 0.4 MG CAP PO SCH (21:10)
[2018-01-29] MEDS: Senokot S 8.6-50 MG TAB PO SCH (21:10)
[2018-01-29 21:54] LABS: Troponin I 0.071 ng/mL (< 0.028)
[2018-01-30] MEDS: HYDROcodone/Acetaminophen 5/325 mg Tablet PO PRN ×4 (03:21→16:19)
[2018-01-30] MEDS: Ampicillin 2 GM in Sodium Chloride 0.9% 100 ML IVPB SCH ×3 (05:29→19:41)
[2018-01-30 05:44] LABS: #Eosinphils 0.1 thou/uL (0.0-0.7); #Lymphocytes 0.9 thou/uL (1.20-3.40); #Monocytes 1.1 thou/uL (0.11-0.59); #Neutrophils 9.5 thou/uL (1.40-6.50); %Eosinophils 0.5 % (0.0-10.0); %Monocytes 9.2 % (0.0-10.0); %Neutrophils 82.3 % (42.0-75.0); Hemoglobin 9.6 g/dL (14.0-18.0); Mean Corpuscular HGB CONC 33.4 g/dL (32.0-36.0); Mean Corpuscular Hemoglobin 30.8 pg (27.0-31.0); Mean Corpuscular Volume 92.1 fL (78.0-98.0); Mean Platelet Volume 6.7 fL (7.4-10.4); Platelet Count 182 thou/uL (130-400); RBC Distribution Width 13.8 % (11.5-14.5); Red Blood Cell (RBC) Count 3.12 mill/uL (4.70-6.10); White Blood Cell (WBC) Count 11.6 thou/uL (4.8-10.8)
[2018-01-30 05:56] LABS: Albumin 2.9 g/dL (3.4-4.8); Anion Gap 11 mmol/L (10-20); BUN (Urea Nitrogen) 23 mg/dL (8.4-25.7); BUN/Creatinine Ratio 25.56; Calc. Creatinine Clearance 108 mL/min (70-130); Calcium 8.6 mg/dL (7.8-10.44); Carbon Dioxide 25 mmol/L (23-31); Chloride 101 mmol/L (98-107); Estimated GFR-MDRD 84; Glucose 113 mg/dL (80-115); Magnesium 1.6 mg/dL (1.6-2.6); Phosphorus 2.2 mg/dL (2.3-4.7); Potassium 3.7 mmol/L (3.5-5.1); Sodium 133 mmol/L (136-145)
[2018-01-30] MEDS ORDERED: Potassium Chloride 20 MEQ TAB PO SCH (08:00)
[2018-01-30] MEDS: Senokot S 8.6-50 MG TAB PO SCH ×2 (09:17→20:51)
[2018-01-30] MEDS: K-Phos Neutral 250 MG TAB PO SCH ×3 (09:22→16:21)
[2018-01-30] MEDS: Heparin 5,000 UNITS/ML VIAL SC SCH ×2 (09:23→20:48)
[2018-01-30] MEDS: Finasteride 5 MG TAB PO SCH (09:23)
[2018-01-30] MEDS: Famotidine 20 MG TAB PO SCH ×2 (09:23→20:49)
[2018-01-30] MEDS: Bicalutamide 50 MG TAB PO SCH (10:30)
--- NOTE | 2018-01-30 13:18 | PDOC.PN ---
- Subjective Encounter Start Date: 01/30/18 Encounter Start Time: 10:00 Patient seen and examined for Sepsis/Bacteremia/Prostate Ca. No CP/SOB. No new complaints. No overnight events - Objective Resuscitation Status: Resuscitation Status FULL:Full Resuscitation MAR Reviewed: Yes Vital Signs & Weight: Vital Signs (12 hours) Temp Pulse Resp BP Pulse Ox 01/30/18 11:35 98.8 F 104 H 18 121/75 92 L 01/30/18 07:52 98.3 F 97 18 94 L 01/30/18 07:49 98.3 F 97 18 123/75 94 L 01/30/18 03:31 98.2 F 97 16 121/73 96 Weight Admit Weight 205 lb 12.8 oz Weight 212 lb I&O: 01/29/18 01/30/18 01/31/18 06:59 06:59 06:59 Intake Total 3755 2710 Output Total 3550 1225 Balance 205 1485 Result Diagrams: 01/30/18 05:04 01/30/18 05:04 Additional Labs: Accuchecks 01/30/18 10:41 POC Glucose 165 H Laboratory Tests 01/29/18 01/29/18 01/29/18 18:14 18:14 21:24 Phosphorus Troponin I 0.111 H 0.071 H B-Natriuretic Peptide 823.4 H 01/30/18 05:04 Phosphorus 2.2 L Troponin I B-Natriuretic Peptide Radiology Reviewed by me: No (Bone scan - Diffuse Mets) EKG Reviewed by me: Yes (Tele SR) Phys Exam - Physical Examination Constitutional: NAD Respiratory: no wheezing, no rales, no rhonchi Cardiovascular: RRR, no rub Gastrointestinal: soft, non-tender, positive bowel sounds Musculoskeletal: no edema Dx/Plan - Plan DVT proph w/SCDs IMPRESSION: 1. Sepsis secondary to Enterococcus UTI/acute pyelonephritis with bacteremia - on IV Ampicillin 2. Chronic urinary retention with indwelling Zurita catheter. Zurita catheter placed in ER 3. Acute kidney injury. improving 4. Hyponatremia/ Hypokalemia/Hypomagnessemia 5. Prostate Cancer with Metastasis - Stated on Casodex 6. Moderate Protein Calorie Malnutrition 7. Back pain - prob due to mets/UTI 8. Elevated troponin prob due to Volume overload r/o CHF (BNP elevated) PLAN: * Cont Atbx * Cont Cardizem PO * Replace Phosphorus * Await Echo * May transfer to Oncology * DC IVF * Cont Flomax/Finasteride * Change Potassium chloride to 20 meq daily * Cont Ketoconazole per Urology * Cont other meds as below * AM labs Review of Systems - Review of Systems Respiratory: negative: Cough, Dry, Shortness of Breath, Hemoptysis, SOB with Excertion, Pleuritic Pain, Sputum, Wheezing Cardiovascular: negative: chest pain, palpitations, orthopnea, paroxysmal nocturnal dyspnea, edema, light headedness, other - Medications/Allergies Allergies/Adverse Reactions: Allergies Allergy/AdvReac Type Severity Reaction Status Date / Time No Known Allergies Allergy Unverified 01/27/18 11:36 Medications: Current Medications Acetaminophen (Tylenol) 650 mg PO Q4H PRN PRN Reason: Headache/Fever or Pain Last Admin: 01/29/18 00:59 Dose: 650 mg Hydrocodone Bitart/Acetaminophen ([place] 5/325) 1 tab PO Q4H PRN PRN Reason: Moderate Pain (4-6) Last Admin: 01/30/18 12:00 Dose: 1 tab Bicalutamide (Casodex) 50 mg PO DAILY [facility] Last Admin: 01/30/18 10:30 Dose: 50 mg Calcium Carbonate (Tums) 1,000 mg PO Q4H PRN PRN Reason: Heartburn or Indigestion Clonidine (Catapres) 0.1 mg PO Q4H PRN PRN Reason: Systolic BP > 180 Diltiazem HCl (Cardizem) 30 mg PO TID [facility] Last Admin: 01/30/18 09:22 Dose: 30 mg Famotidine (Pepcid) 20 mg PO BID [facility] Last Admin: 01/30/18 09:23 Dose: 20 mg Finasteride (Proscar) 5 mg PO DAILY [facility] Last Admin: 01/30/18 09:23 Dose: 5 mg Heparin Sodium (Porcine) (Heparin) 5,000 units SC BID [facility] Last Admin: 01/30/18 09:23 Dose: 5,000 units Ampicillin Sodium 2 gm/ Sodium (Chloride) 100 mls @ 200 mls/hr IVPB Q6HR [facility] Last Admin: 01/30/18 11:37 Dose: 100 mls Potassium Chloride/Sodium Chloride (Ns 0.9% W/ 20 Meq Kcl) 1,000 ml in 1,000 mls @ 50 mls/hr IV .Q20H [facility] Last Admin: 01/29/18 18:45 Dose: 1,000 mls Ketoconazole (Nizoral) 400 mg PO TID [facility] Last Admin: 01/30/18 09:23 Dose: 400 mg Labetalol HCl (Normodyne) 10 mg SLOW IVP Q4H PRN PRN Reason: Systolic BP > 180 Ondansetron HCl (Zofran Odt) 4 mg PO Q6H PRN PRN Reason: Nausea/Vomiting Ondansetron HCl (Zofran) 4 mg IVP Q6H PRN PRN Reason: Nausea/Vomiting Phosphorus (Kphos Neutral) 250 mg PO TID-[facility] Last Admin: 01/30/18 11:43 Dose: 250 mg Potassium Chloride (K-Dur) 20 meq PO BID-[facility] Last Admin: 01/30/18 09:22 Dose: 20 meq Senna/Docusate Sodium (Senokot S) 1 tab PO BID [facility] Last Admin: 01/30/18 09:17 Dose: Not Given Sodium Chloride (Flush - Normal Saline) 10 ml IVF PRN PRN PRN Reason: Saline Flush Tamsulosin HCl (Flomax) 0.4 mg PO [facility] Last Admin: 01/29/18 21:10 Dose: 0.4 mg
--- NOTE | 2018-01-30 17:31 | PRG ---
DATE OF SERVICE: 01/30/2018 SUBJECTIVE: The patient states he is feeling pretty good. He is still very weak, but states he is n ot having any significant pain except on his left hip. He has already been started on Casodex and ke taconazole. He denies any chest pain or shortness of breath. He did undergo a bone scan which showe d diffuse osseous metastatic disease. He has already been seen by Oncology. OBJECTIVE: VITAL SIGNS: Temperature 98.8, pulse 104, respirations 18, blood pressure 121/75, saturation 92% on room air. GENERAL: No apparent distress, somewhat lethargic, communicative and alert otherwise. CARDIOVASCULAR: Sinus tachycardia. ABDOMEN: Soft, nontender, nondistended. EXTREMITIES: No clubbing, cyanosis or edema. LABORATORY EVALUATION: The full set of labs in the [facility] system, which I have reviewed note the p saul's white count is 11.6 with a hemoglobin of 9.6, platelet count of 182. Sodium is 133. Tropon ins are trending down, 0.071 being the last value. PSA had been significantly elevated at 1647. ASSESSMENT AND PLAN: A 67-year-old white male with diffuse metastatic prostate cancer, both in the r etroperitoneal lymph nodes as well as his bony metastatic disease. He is relatively asymptomatic, bu t will likely have early mortality without intervention. I agree with the Casodex and the ketaconazo le. The patient should probably be discharged on ketaconazole and Casodex. However, the ketaconazol e will cause complete androgen suppression and he will need replacement of hydrocortisone and mineral ocorticoids upon discharge to avoid severe adrenal insufficiency and life-threatening hypotension. T hese medications should be started on the third day at minimum of the patient being on ketaconazole t o avoid adrenal insufficiency. Once the patient is switched over to Lupron, he can stop the ketacona zole and allow for normal adrenal production of steroids. The Casodex should be continued until Dr. Stafford has stopped them herself. He should continue his Zurita catheter. Dr. Luis M Fonseca will be see ing the patient over the weekend if there are any issues. If the patient is considered a candidate f or docetaxel or cabazitaxel chemotherapy, he may benefit from a port placement if necessary while in the hospital, but I will leave that to the oncology team.
--- NOTE | 2018-01-30 18:08 | PRG ---
DATE OF SERVICE: 01/30/2018 SUBJECTIVE: Mr. Owusu is upset about the notice of his recrudescence and worsening of disseminated p rostate cancer, otherwise is feeling better in terms of his infection. No shortness of breath, some back pain. No abdominal pain or diarrhea. He has a Zurita catheter in place. OBJECTIVE: VITAL SIGNS: T-max 98.8 and other vital signs are normal except for slight tachycardia. GENERAL: Awake, alert, oriented, and pleasant. LUNGS: Symmetric clear breath sounds. HEART: S1, S2 regular rate. ABDOMEN: Soft, not distended. EXTREMITIES: Moves extremities on command. He is not pleuritic. His white cell count is 11.6, hemoglobin 9.6, platelets 182. Sodium 133, creatinine 0.9. Microbiolo gy with E. faecalis retrieved from 2 sets of blood cultures and one set of urine cultures. ASSESSMENT AND DISCUSSION: Prostate cancer, likely metastatic to bone and lymph nodes, urinary obstr uction after recent removal of Zurita catheter secondary to Enterococcus faecalis. The patient curren tly on ampicillin. Eventually transition to oral amoxicillin for discharge planning. Treat for 2 we eks approximately.
[2018-01-30] MEDS: HYDROcodone/Acetaminophen 7.5/325 mg Tablet PO PRN (20:46)
[2018-01-30] MEDS: Tamsulosin HCl 0.4 MG CAP PO SCH (20:50)
[2018-01-31] MEDS: Ampicillin 2 GM in Sodium Chloride 0.9% 100 ML IVPB SCH ×4 (00:05→18:02)
[2018-01-31] MEDS: HYDROcodone/Acetaminophen 7.5/325 mg Tablet PO PRN ×5 (01:14→21:12)
[2018-01-31] MEDS ORDERED: Magnesium Sulfate 4 GM in Sodium Chloride 0.9% 250 ML 250 ML IVPB SCH (07:30)
[2018-01-31] MEDS ORDERED: Potassium Chloride 20 MEQ TAB PO SCH (08:00)
[2018-01-31] MEDS: Senokot S 8.6-50 MG TAB PO SCH ×2 (10:38→21:45)
[2018-01-31] MEDS: predniSONE 20 MG TAB PO SCH (10:38)
[2018-01-31] MEDS: Fludrocortisone Acetate 0.1 MG TAB PO SCH (10:39)
[2018-01-31] MEDS: Finasteride 5 MG TAB PO SCH (10:39)
[2018-01-31] MEDS: Famotidine 20 MG TAB PO SCH ×2 (10:39→22:30)
[2018-01-31] MEDS: Heparin 5,000 UNITS/ML VIAL SC SCH ×2 (10:40→21:45)
[2018-01-31] MEDS: Polyethylene Glycol 3350 17 GM Packet PO SCH (10:41)
[2018-01-31] MEDS: K-Phos Neutral 250 MG TAB PO SCH ×3 (10:52→16:48)
[2018-01-31] MEDS: Bicalutamide 50 MG TAB PO SCH (11:04)
--- NOTE | 2018-01-31 15:55 | PRG ---
DATE OF SERVICE: 01/31/2018 REASON FOR CONSULTATION: 1. Stage 4 prostate cancer with metastases. 2. Urinary retention. BRIEF HISTORY: Mr. Mono Owusu is a very pleasant 67-year-old white male, who receives most of his [facility] care through the [facility]. The patient had a very high PSA about 10 years ago and had a prior prostate biopsy that he believes was positive for cancer. The patient did not u ndergo any subsequent definitive therapy. He presented to the [facility] on 01/27/[address] scan of the abdomen and pelvis, which demonstrated some bilateral retroperitoneal and perinephric fat stranding, more prominent on the right. He did borrero ve right-sided urolithiasis, but this did not appear obstructive. The patient had a bulky retroperit roberson adenopathy seen suggestive of lymphoma or metastatic disease. The patient's PSA returned very high at 1647, indicating probable metastatic prostate cancer based on the history and CT findings. T he patient has been hospitalized for a urine infection secondary to Enterococcus faecalis and does borrero ve an indwelling catheter at this point. He had some hematuria earlier in the week and this is clear ed substantially. At the present time, the patient's main issues appear to revolve around pain secon logan to metastatic disease and also loss of appetite. He does not appear to be actually constipated, as he did have a bowel movement on 01/29/2018, which was normal in consistency and formed. He more or less has a lack of desire to eat, as it makes him feel uncomfortable, he is nauseated. The patien t is taking narcotics for pain control, which may also contribute to the nausea and lack of hunger. Patient reports that it is difficult to take deep breaths, because his ribs hurt. INTERVAL EVENTS: The patient has not had any substantial food intake in the last 24 hours. His urin e culture results from 01/29/2018 showed Enterococcus faecalis, which is resistant to ciprofloxacin a nd other fluoroquinolones as well as tetracyclines, but sensitive to nitrofurantoin, imipenem, linezo lid, and piperacillin as well as vancomycin. PHYSICAL EXAMINATION: VITAL SIGNS: Temperature is 99.7, pulse 117, respirations 20, O2 saturations 91% on room air, blood pressure is 133/68. GENERAL: This is a pleasant, awake, and alert, GCS 15, white male in no apparent distress. He moves relatively deliberately and seems most comfortable lying supine, taking shallow breaths. HEAD, EARS, EYES, NOSE, AND THROAT: Extraocular movements are intact. Sclerae are anicteric. Oroph arynx is clear. NECK: Supple. LUNGS: Clear bilaterally. The patient takes relatively slow breaths with breathing, as it seems to be more comfortable for him. ABDOMEN: Soft, obese, and nontender. GENITOURINARY: Indwelling Zurita catheter is in place and is draining urine, which is predominantly s traw-colored with a trace amount of hematuria present. LABORATORY STUDIES: Electrolytes appear within normal limits as of 01/30/2018 with exception of sodi um, which was low. His serum glucose was 165 when tested. Magnesium was low this morning at 1.4 con sistent with his poor nutritional state. His BNP number has been elevated as well as his troponins d uring this hospitalization. ASSESSMENT AND PLAN: 1. Stage 4 metastatic prostate cancer by clinical criteria. The patient is currently on medical man agement for that with the use of Casodex and ketaconazole 2. Pain in the ribs and back. The patient is continuing on oral narcotic therapy for that. 3. Urinary outlet obstruction is most likely secondary to the prostate cancer and will respond most likely to treatment for that. At the present time, Zurita catheter is the appropriate drainage. 4. Urinary tract infection due to Enterococcus. The patient appears to be appropriately treated on chronic ampicillin therapy. 5. GI and dietary intake The patient has relatively poor intake. He is not constipated, but his se lf-report he had a normal bowel movement 2 days ago. He has not eaten anything of substance in 2 day s. His nutritional status should be maintained, going to add Marinol today to see if that helps a li ttle bit. Minimization of narcotic use may also help. Over 35 minutes of consultation assessment time was spent in evaluation of this patient today over borrero lf of which was in [id number] evaluation.
[2018-01-31] MEDS: Dronabinol 2.5 MG CAP PO SCH (17:02)
--- NOTE | 2018-01-31 19:01 | PDOC.PN ---
- Subjective Encounter Start Date: 01/31/18 Encounter Start Time: 17:00 Patient seen and examined for Sepsis/bacteremia. No new complaints. No overnight events - Objective Resuscitation Status: Resuscitation Status FULL:Full Resuscitation MAR Reviewed: Yes Vital Signs & Weight: Vital Signs (12 hours) Temp Pulse Pulse Pulse Resp BP BP 01/31/18 16:00 98.9 F 105 H 20 01/31/18 15:00 112 H 105 H 128/69 122/68 01/31/18 11:37 99.7 F H 117 H 20 01/31/18 07:58 98.5 F 104 H 20 BP Pulse Ox Pulse Ox 01/31/18 16:00 115/70 92 L 01/31/18 15:00 94 L 01/31/18 11:37 133/68 91 L 01/31/18 07:58 124/68 92 L Weight Admit Weight 205 lb 12.8 oz Weight 212 lb I&O: 01/30/18 01/31/18 02/01/18 06:59 06:59 06:59 Intake Total 2710 1100 Output Total 1225 1200 750 Balance 1485 -100 -750 Result Diagrams: 01/30/18 05:04 01/30/18 05:04 Radiology Reviewed by me: Yes (Echo - normal EF) Phys Exam - Physical Examination Constitutional: NAD Respiratory: no wheezing, no rhonchi Cardiovascular: RRR, no rub Gastrointestinal: soft, non-tender, positive bowel sounds Musculoskeletal: no edema Neurological: non-focal, moves all 4 limbs Dx/Plan - Plan DVT proph w/heparin, DVT proph w/SCDs IMPRESSION: 1. Sepsis secondary to Enterococcus UTI/acute pyelonephritis with bacteremia - on IV Ampicillin 2. Chronic urinary retention with indwelling Zurita catheter. Zurita catheter placed in ER 3. Acute kidney injury. improving 4. Hyponatremia/ Hypokalemia/Hypomagnessemia 1.4 5. Prostate Cancer with Metastasis - Stated on Casodex/Ketoconazole 6. Moderate Protein Calorie Malnutrition/ Back pain - prob due to mets/ Elevated troponin prob due to Volume overload r/o CHF (BNP elevated) PLAN: -Add Fludricortisone and Prednisone while on Ketoconazole -Cont Ampicillin - change to Amoxicillin at dc -Replace Magnessium - 4 gm Mag x 1 -Cont current meds as below -Echo reviewed -AM labs Laboratory Tests 01/30/18 01/31/18 05:04 03:57 Phosphorus 2.2 L Magnesium 1.4 L Review of Systems - Review of Systems Respiratory: negative: Cough, Dry, Shortness of Breath, Hemoptysis, SOB with Excertion, Pleuritic Pain, Sputum, Wheezing Cardiovascular: negative: chest pain, palpitations, orthopnea, paroxysmal nocturnal dyspnea, edema, light headedness, other - Medications/Allergies Allergies/Adverse Reactions: Allergies Allergy/AdvReac Type Severity Reaction Status Date / Time No Known Allergies Allergy Unverified 01/27/18 11:36 Medications: Current Medications Acetaminophen (Tylenol) 650 mg PO Q4H PRN PRN Reason: Headache/Fever or Pain Last Admin: 01/29/18 00:59 Dose: 650 mg Hydrocodone Bitart/Acetaminophen ([place] 5/325) 1 tab PO Q4H PRN PRN Reason: Moderate Pain (4-6) Last Admin: 01/30/18 16:19 Dose: 1 tab Hydrocodone Bitart/Acetaminophen ([place] 7.5/325) 1 tab PO Q4H PRN PRN Reason: Severe Pain (7-10) Last Admin: 01/31/18 15:15 Dose: 1 tab Bicalutamide (Casodex) 50 mg PO DAILY [facility] Last Admin: 01/31/18 11:04 Dose: 50 mg Calcium Carbonate (Tums) 1,000 mg PO Q4H PRN PRN Reason: Heartburn or Indigestion Clonidine (Catapres) 0.1 mg PO Q4H PRN PRN Reason: Systolic BP > 180 Diltiazem HCl (Cardizem) 30 mg PO TID [facility] Last Admin: 01/31/18 15:12 Dose: 30 mg Dronabinol (Marinol) 2.5 mg PO BID-AC [facility] Last Admin: 01/31/18 17:02 Dose: 2.5 mg Famotidine (Pepcid) 20 mg PO BID [facility] Last Admin: 01/31/18 10:39 Dose: 20 mg Finasteride (Proscar) 5 mg PO DAILY [facility] Last Admin: 01/31/18 10:39 Dose: 5 mg Fludrocortisone Acetate (Florinef) 0.1 mg PO DAILY [facility] Last Admin: 01/31/18 10:39 Dose: 0.1 mg Heparin Sodium (Porcine) (Heparin) 5,000 units SC BID [facility] Last Admin: 01/31/18 10:40 Dose: 5,000 units Ampicillin Sodium 2 gm/ Sodium (Chloride) 100 mls @ 200 mls/hr IVPB Q6HR [facility] Last Admin: 01/31/18 18:02 Dose: 100 mls Ketoconazole (Nizoral) 400 mg PO TID [facility] Last Admin: 01/31/18 15:12 Dose: 400 mg Labetalol HCl (Normodyne) 10 mg SLOW IVP Q4H PRN PRN Reason: Systolic BP > 180 Ondansetron HCl (Zofran Odt) 4 mg PO Q6H PRN PRN Reason: Nausea/Vomiting Ondansetron HCl (Zofran) 4 mg IVP Q6H PRN PRN Reason: Nausea/Vomiting Last Admin: 01/30/18 21:56 Dose: 4 mg Phosphorus (Kphos Neutral) 250 mg PO TID-[facility] Last Admin: 01/31/18 16:48 Dose: 250 mg Polyethylene Glycol (Miralax) 17 gm PO DAILY [facility] Last Admin: 01/31/18 10:41 Dose: 17 gm Potassium Chloride (K-Dur) 20 meq PO QAM-[facility] Last Admin: 01/31/18 10:39 Dose: 20 meq Prednisone (Prednisone) 10 mg PO QAM-[facility] Last Admin: 01/31/18 10:38 Dose: 10 mg Senna/Docusate Sodium (Senokot S) 1 tab PO BID [facility] Last Admin: 01/31/18 10:38 Dose: 1 tab Sodium Chloride (Flush - Normal Saline) 10 ml IVF PRN PRN PRN Reason: Saline Flush Tamsulosin HCl (Flomax) 0.4 mg PO HS [facility] Last Admin: 01/30/18 20:50 Dose: 0.4 mg
[2018-01-31] MEDS: Tamsulosin HCl 0.4 MG CAP PO SCH (21:45)
[2018-02-01] MEDS: Ampicillin 2 GM in Sodium Chloride 0.9% 100 ML IVPB SCH ×5 (00:20→23:34)
[2018-02-01 05:18] LABS: #Eosinphils 0.1 thou/uL (0.0-0.7); #Lymphocytes 1.2 thou/uL (1.20-3.40); #Monocytes 1.2 thou/uL (0.11-0.59); #Neutrophils 13.1 thou/uL (1.40-6.50); %Basophils 0.1 % (0.0-1.0); %Eosinophils 0.5 % (0.0-10.0); %Lymphocytes 7.6 % (21.0-51.0); %Monocytes 7.5 % (0.0-10.0); %Neutrophils 84.3 % (42.0-75.0); Hemoglobin 9.5 g/dL (14.0-18.0); Mean Corpuscular HGB CONC 33.2 g/dL (32.0-36.0); Mean Corpuscular Hemoglobin 30.7 pg (27.0-31.0); Mean Corpuscular Volume 92.4 fL (78.0-98.0); Mean Platelet Volume 6.5 fL (7.4-10.4); Platelet Count 199 thou/uL (130-400); RBC Distribution Width 13.8 % (11.5-14.5); White Blood Cell (WBC) Count 15.6 thou/uL (4.8-10.8)
[2018-02-01 05:28] LABS: Anion Gap 13 mmol/L (10-20); BUN (Urea Nitrogen) 21 mg/dL (8.4-25.7); Calc. Creatinine Clearance 102 mL/min (70-130); Calcium 8.5 mg/dL (7.8-10.44); Carbon Dioxide 27 mmol/L (23-31); Chloride 98 mmol/L (98-107); Estimated GFR-MDRD 77; Glucose 128 mg/dL (80-115); Magnesium 1.2 mg/dL (1.6-2.6); Potassium 4.1 mmol/L (3.5-5.1); Sodium 134 mmol/L (136-145)
[2018-02-01] MEDS: HYDROcodone/Acetaminophen 7.5/325 mg Tablet PO PRN ×3 (05:51→23:40)
[2018-02-01] MEDS ORDERED: Magnesium Sulfate 4 GM in Sodium Chloride 0.9% 250 ML 250 ML IVPB SCH (07:00)
[2018-02-01] MEDS: K-Phos Neutral 250 MG TAB PO SCH ×3 (08:12→16:42)
[2018-02-01] MEDS: predniSONE 20 MG TAB PO SCH (08:12)
[2018-02-01] MEDS: Fludrocortisone Acetate 0.1 MG TAB PO SCH (08:12)
[2018-02-01] MEDS: Famotidine 20 MG TAB PO SCH ×2 (08:12→20:11)
[2018-02-01] MEDS: Senokot S 8.6-50 MG TAB PO SCH ×2 (08:13→20:12)
[2018-02-01] MEDS: Magnesium Chloride 64 MG TAB PO SCH ×2 (08:13→20:18)
[2018-02-01] MEDS: Finasteride 5 MG TAB PO SCH (08:13)
[2018-02-01] MEDS: Dronabinol 2.5 MG CAP PO SCH ×2 (08:14→16:42)
[2018-02-01] MEDS: Polyethylene Glycol 3350 17 GM Packet PO SCH (08:15)
[2018-02-01] MEDS: Heparin 5,000 UNITS/ML VIAL SC SCH ×2 (08:27→20:10)
[2018-02-01] MEDS ORDERED: Prevnar 13-Val Conj/PF 0.5 ML SYRINGE IM ONE (09:00)
--- NOTE | 2018-02-01 10:28 | PDOC.PN ---
- Subjective Encounter Start Date: 02/01/18 Encounter Start Time: 10:00 Patient seen and examined for Sepsis. No new complaints. No overnight events - Objective Resuscitation Status: Resuscitation Status FULL:Full Resuscitation MAR Reviewed: Yes Vital Signs & Weight: Vital Signs (12 hours) Temp Pulse Resp BP Pulse Ox 02/01/18 07:47 98.7 F 107 H 20 117/58 L 92 L Weight Admit Weight 205 lb 12.8 oz Weight 212 lb I&O: 01/31/18 02/01/18 02/02/18 06:59 06:59 06:59 Intake Total 1100 680 Output Total 1200 1175 Balance -100 -495 Result Diagrams: 02/01/18 04:55 02/01/18 04:55 Phys Exam - Physical Examination Constitutional: NAD Respiratory: no wheezing, no rhonchi Cardiovascular: RRR, no rub Gastrointestinal: soft, non-tender, positive bowel sounds Musculoskeletal: no edema Neurological: moves all 4 limbs Dx/Plan - Plan PT/OT, out of bed/ambulate, DVT proph w/heparin, DVT proph w/SCDs IMPRESSION: 1. Sepsis secondary to Enterococcus UTI/acute pyelonephritis with Enterococcus bacteremia - on IV Ampicillin 2. Chronic urinary retention with indwelling Zurita catheter. 3. Hypomagnessemia 1.2 5. Prostate Cancer with Metastasis - Stated on Casodex/Ketoconazole with steroids/mineralocorticoid 6. Moderate Protein Calorie Malnutrition/ Back pain - prob due to mets/ Elevated troponin/Acute kidney injury- resolved/Hyponatremia/ Hypokalemia PLAN: Cont Fludrocortisone and Prednisone at current dose Replace Magnessium - 4 gm Mag x 1 Cont Ampicillin - change to Amoxicillin at dc Cont Zurita at dc Cont current meds as below DC PO Potassium Add oral Mag supp. Change PO Cardizem to 30 mg BID Cont PT/OT DC to SNF in AM if ok with Urology Review of Systems - Review of Systems Respiratory: negative: Cough, Dry, Shortness of Breath, Hemoptysis, SOB with Excertion, Pleuritic Pain, Sputum, Wheezing Cardiovascular: negative: chest pain, palpitations, orthopnea, paroxysmal nocturnal dyspnea, edema, light headedness, other - Medications/Allergies Allergies/Adverse Reactions: Allergies Allergy/AdvReac Type Severity Reaction Status Date / Time No Known Allergies Allergy Unverified 01/27/18 11:36 Medications: Current Medications Acetaminophen (Tylenol) 650 mg PO Q4H PRN PRN Reason: Headache/Fever or Pain Last Admin: 01/29/18 00:59 Dose: 650 mg Hydrocodone Bitart/Acetaminophen ([place] 5/325) 1 tab PO Q4H PRN PRN Reason: Moderate Pain (4-6) Last Admin: 01/30/18 16:19 Dose: 1 tab Hydrocodone Bitart/Acetaminophen ([place] 7.5/325) 1 tab PO Q4H PRN PRN Reason: Severe Pain (7-10) Last Admin: 02/01/18 05:51 Dose: 1 tab Bicalutamide (Casodex) 50 mg PO DAILY [facility] Last Admin: 01/31/18 11:04 Dose: 50 mg Calcium Carbonate (Tums) 1,000 mg PO Q4H PRN PRN Reason: Heartburn or Indigestion Clonidine (Catapres) 0.1 mg PO Q4H PRN PRN Reason: Systolic BP > 180 Diltiazem HCl (Cardizem) 30 mg PO BID [facility] Last Admin: 02/01/18 08:14 Dose: 30 mg Dronabinol (Marinol) 2.5 mg PO BID-AC [facility] Last Admin: 02/01/18 08:14 Dose: 2.5 mg Famotidine (Pepcid) 20 mg PO BID [facility] Last Admin: 02/01/18 08:12 Dose: 20 mg Finasteride (Proscar) 5 mg PO DAILY [facility] Last Admin: 02/01/18 08:13 Dose: 5 mg Fludrocortisone Acetate (Florinef) 0.1 mg PO DAILY [facility] Last Admin: 02/01/18 08:12 Dose: 0.1 mg Heparin Sodium (Porcine) (Heparin) 5,000 units SC BID [facility] Last Admin: 02/01/18 08:27 Dose: 5,000 units Ampicillin Sodium 2 gm/ Sodium (Chloride) 100 mls @ 200 mls/hr IVPB Q6HR [facility] Last Admin: 02/01/18 05:53 Dose: 100 mls Ketoconazole (Nizoral) 400 mg PO TID [facility] Last Admin: 02/01/18 08:12 Dose: 400 mg Labetalol HCl (Normodyne) 10 mg SLOW IVP Q4H PRN PRN Reason: Systolic BP > 180 Magnesium Chloride (Slow-Mag) 64 mg PO BID [facility] Last Admin: 02/01/18 08:13 Dose: 64 mg Ondansetron HCl (Zofran Odt) 4 mg PO Q6H PRN PRN Reason: Nausea/Vomiting Ondansetron HCl (Zofran) 4 mg IVP Q6H PRN PRN Reason: Nausea/Vomiting Last Admin: 01/30/18 21:56 Dose: 4 mg Phosphorus (Kphos Neutral) 250 mg PO TID-[facility] Last Admin: 02/01/18 08:12 Dose: 250 mg Polyethylene Glycol (Miralax) 17 gm PO DAILY [facility] Last Admin: 02/01/18 08:15 Dose: 17 gm Prednisone (Prednisone) 10 mg PO QAM-[facility] Last Admin: 02/01/18 08:12 Dose: 10 mg Senna/Docusate Sodium (Senokot S) 1 tab PO BID [facility] Last Admin: 02/01/18 08:13 Dose: 1 tab Sodium Chloride (Flush - Normal Saline) 10 ml IVF PRN PRN PRN Reason: Saline Flush Tamsulosin HCl (Flomax) 0.4 mg PO [facility] Last Admin: 01/31/18 21:45 Dose: 0.4 mg
[2018-02-01] MEDS: Bicalutamide 50 MG TAB PO SCH (10:47)
--- NOTE | 2018-02-01 19:32 | CON ---
DATE OF CONSULTATION: 02/01/2018 INITIAL REASON FOR CONSULTATION: 1. Stage IV prostate cancer with metastases. 2. Urinary retention. ADDITIONAL DIAGNOSIS: Loss of appetite. HISTORY OF PRESENT ILLNESS: Mr. Mono Owusu is very pleasant 67-year-old white male who receives most of his medical care through the [facility]. He was admitted here on 01/27/2018 d ue to obstructive voiding symptoms and he underwent a CT scan of the abdomen and pelvis, which demons trated bilateral retroperitoneal and perinephric fat stranding, more prominent on the right. He did have right-sided urolithiasis, but this did not appear obstructive. The patient had bulky retroperit roberson lymph nodes suggestive of lymphoma or metastatic disease. His PSA returned very high at 1647. This indicates probable metastatic prostate cancer based on the history and CT findings. The patien t did have urinary tract infection secondary to Enterococcus faecalis and does have an indwelling Fol ey catheter for urinary retention. He had hematuria, which has cleared substantially and today his u rine is actually clear. INTERVAL EVENTS: The patient reports he has had improvement in his food intake and has eaten some of each of the meals that have been brought to him. We did start him on Marinol yesterday. His urine culture from 01/29/2018 showed Enterococcus faecalis resistant to ciprofloxacin and other fluoroquino lones as well as tetracycline, but sensitive to nitrofurantoin, imipenem, linezolid and piperacillin as well as vancomycin. PHYSICAL EXAMINATION: VITAL SIGNS: Current temperature 98.7, pulse 107, respirations 20, O2 saturations 92% on room air, b lood pressure is 117/58. GENERAL: This is a pleasant, awake, alert, white male in no distress. He has improved ability today and reports that deep breathing is hurting him less. HEAD, EYES, EARS, NOSE AND THROAT: Extraocular movements are intact. Sclerae are anicteric. Oropha rynx is clear. NECK: Supple. LUNGS: Clear to auscultation bilaterally. The patient is able to breathe a little bit better today. ABDOMEN: Soft, obese, and nontender. GENITOURINARY: Zurita catheter is in place and is draining urine which is straw colored. There is no longer any trace hematuria as it was yesterday. MUSCULOSKELETAL: Negative except for the patient's report of back pain with movement, which is victor m r today than yesterday. LABORATORY STUDIES: The patient's white count is up to 15.6 thousand today, hemoglobin is 9.5 with a hematocrit of 28.6. He has an ANC currently at 13.1 and % neutrophils are 84.3%. Serum chemistry s hows the creatinine 0.97, blood urea nitrogen at 21, glucose elevated at 128. Microbiology: He had 2 blood samples drawn on 01/27/2018, which showed the presence of Enterococcus faecalis and a Zurita u rine culture, which also showed that on the same date. ASSESSMENT AND PLAN: 1. Metastatic stage IV prostate cancer. Patient is currently on medical management with Casodex, ke toconazole and appropriate additional coverages as required for this. He will ultimately start on Kati pron as an outpatient after initial blocking of his indigent response. 2. Previous loss of appetite complaints. The patient is much improved on Marinol at the present keyla e. No apparent adverse side effects present. 3. Urinary tract infection. The patient should continue on current antibiotic coverage, which curre ntly is ampicillin IV. The patient probably can be transitioned to oral ampicillin in the near futur e as the organism appears to be sensitive to that. 4. Urinary obstruction. The patient should remain on maximal medical therapy with treatment of his prostate cancer in addition to BPH treatment with Proscar. Over 35 minutes evaluation time, half or more, which was [id number] was spent in evaluation and ass essment on this patient today.
[2018-02-01] MEDS: Tamsulosin HCl 0.4 MG CAP PO SCH (20:12)
[2018-02-02] MEDS: HYDROcodone/Acetaminophen 7.5/325 mg Tablet PO PRN ×2 (03:55→10:27)
[2018-02-02 04:26] LABS: Magnesium 1.8 mg/dL (1.6-2.6); Potassium 3.8 mmol/L (3.5-5.1)
[2018-02-02] MEDS: Ampicillin 2 GM in Sodium Chloride 0.9% 100 ML IVPB SCH ×3 (05:26→17:44)
[2018-02-02] MEDS: Magnesium Chloride 64 MG TAB PO SCH (09:23)
[2018-02-02] MEDS: Bicalutamide 50 MG TAB PO SCH (09:23)
[2018-02-02] MEDS: Polyethylene Glycol 3350 17 GM Packet PO SCH (09:23)
[2018-02-02] MEDS: K-Phos Neutral 250 MG TAB PO SCH ×3 (09:24→17:44)
[2018-02-02] MEDS: Senokot S 8.6-50 MG TAB PO SCH (09:24)
[2018-02-02] MEDS: Famotidine 20 MG TAB PO SCH (09:24)
[2018-02-02] MEDS: Finasteride 5 MG TAB PO SCH (09:24)
[2018-02-02] MEDS: predniSONE 20 MG TAB PO SCH (09:25)
[2018-02-02] MEDS: Dronabinol 2.5 MG CAP PO SCH ×2 (09:25→17:45)
[2018-02-02] MEDS: Fludrocortisone Acetate 0.1 MG TAB PO SCH (09:28)
[2018-02-02] MEDS: Heparin 5,000 UNITS/ML VIAL SC SCH (09:34)
--- NOTE | 2018-02-02 10:34 | PQF ---
CLINICAL DOCUMENTATION IMPROVEMENT CLARIFICATION FORM: ICD-10 Updated PLEASE DO AN ADDENDUM TO THE PROGRESS NOTE WITH ANY DOCUMENTATION UPDATES OR ADDITIONS AND CARRY THROUGH TO DC SUMMARY. THANK YOU. DATE: 02/02/18 ATTN: Dr. Becerra Please exercise your independent, professional judgment in responding to the clarification form. Clinical indicators are provided on the bottom of this form for your review Please check appropriate box(s) to clarify if the following diagnosis has been ruled in or ruled out: R/O CHF (PN 7-) [ ] Ruled in diagnosis [ ] Continue to treat [ ] Resolved [ x ] Ruled out diagnosis [ ] Cannot rule out diagnosis [ ] Other diagnosis [ ] Unable to determine In addition, please specify: Present on Admission (POA): [ ] Yes [ x] No [ ] Unable to determine For continuity of documentation, please document condition throughout progress notes and discharge summary. Thank You. CLINICAL INDICATORS - SIGNS / SYMPTOMS / LABS LAB 01/29: BNP 823.4 CHEST 1 VIEW PORTABLE 01/29: NONSPECIFIC MILD PERIHILAR INTERSTITIAL PROMINENCE NOTED. PN 01/31: ECHO - NORMAL EF ELEVATED TROPONIN PROB D/t VOLUME OVERLOAD R/O CHF (BNP ELEVATED) RISKS: H&P: 01/27 HX OF HTN PN 01/29: SEPSIS SECONDARY TO ENTEROCOCCUS UTI/ ACUTE PYELONEPHRITIS W/ BACTEREMIA. TREATMENT: CPOE 01/29: XRAY CHEST 1 VEW PORTABLE STAT CPOE 01/29: ECHO Thank you, Alina (This form is maintained as a part of the permanent medical record) 2014 [employer]. All Rights Reserved Alina Shi RN, BSN [email or web address] Office: [phone] [facility] CENTERCarrie
[2018-02-02 10:57] VITALS: BMI 28.7
--- NOTE | 2018-02-02 15:46 | RAD ---
SINGLE VIEW OF THE CHEST: Comparison: 01-29-18 History: Shortness of breath. FINDINGS: Single view of the chest shows a normal sized cardiomediastinal silhouette. There is no evidence of c onsolidation, mass, or pleural effusion. Increased interstitial markings are present. Degenerative ch anges are seen in the spine. IMPRESSION: No evidence of acute cardiopulmonary disease. POS: [facility]
--- NOTE | 2018-02-02 19:57 | PDOC.PN ---
- Subjective Encounter Start Date: 02/02/18 Encounter Start Time: 18:00 Patient seen and examined for Sepsis/bacteremia/metastatic prostate Ca. No new complaints. No overnight events except for O2 sat 88% today. No Cough/SOB - Objective Resuscitation Status: Resuscitation Status DNR:Do Not Resuscitate MAR Reviewed: Yes Vital Signs & Weight: Vital Signs (12 hours) Temp Pulse Pulse Pulse Resp BP BP 02/02/18 19:36 98.4 F 103 H 20 02/02/18 16:00 98.1 F 91 18 02/02/18 12:24 99.4 F 02/02/18 12:00 100.1 F H 111 H 20 02/02/18 11:09 120 H 112 H 136/64 121/68 02/02/18 08:00 99.0 F 99 18 BP BP Pulse Ox Pulse Ox Pulse Ox 02/02/18 19:36 113/67 92 L 02/02/18 16:00 119/67 94 L 02/02/18 12:24 02/02/18 12:00 117/64 94 L 02/02/18 11:09 91 L 90 L 02/02/18 08:00 92 L Weight Admit Weight 205 lb 12.8 oz Weight 212 lb I&O: 02/01/18 02/02/18 02/03/18 06:59 06:59 06:59 Intake Total 680 2650 2450 Output Total 1175 1525 900 Balance -495 1125 1550 Result Diagrams: 02/01/18 04:55 02/02/18 03:55 Radiology Reviewed by me: Yes (CXR - neg) Phys Exam - Physical Examination Constitutional: NAD Respiratory: no wheezing, no rhonchi Cardiovascular: RRR, no rub Gastrointestinal: soft, non-tender, positive bowel sounds Musculoskeletal: no edema Neurological: non-focal, moves all 4 limbs Dx/Plan - Plan DVT proph w/heparin, DVT proph w/SCDs IMPRESSION: 1. Sepsis secondary to Enterococcus UTI/acute pyelonephritis with Enterococcus bacteremia - on IV Ampicillin 2. Chronic urinary retention with indwelling Zurita catheter. 3. Hypomagnesemia - corrected - 1.8 today 4. Prostate Cancer with Metastasis - Stated on Casodex/Ketoconazole with Prednisone/mineralocorticoid 5. Moderate Protein Calorie Malnutrition/ Back pain - prob due to mets/ Elevated troponin prob due to Volume overload (CHF ruled out)/Acute kidney injury/Hyponatremia/ Hypokalemia PLAN: Cont Ampicillin - change to Amoxicillin at dc Cont Fludrocortisone / Prednisone while on Ketoconazole Cont Cardizem at 30 mg BID Cont PT/OT Cont KPhos DC to SNF in AM if accepted Cont current meds as below Review of Systems - Review of Systems Constitutional: negative: fever, chills, sweats, weakness, malaise, other Respiratory: negative: Cough, Dry, Shortness of Breath, Hemoptysis, SOB with Excertion, Pleuritic Pain, Sputum, Wheezing Cardiovascular: negative: chest pain, palpitations, orthopnea, paroxysmal nocturnal dyspnea, edema, light headedness, other - Medications/Allergies Allergies/Adverse Reactions: Allergies Allergy/AdvReac Type Severity Reaction Status Date / Time No Known Allergies Allergy Unverified 01/27/18 11:36 Medications: Current Medications Acetaminophen (Tylenol) 650 mg PO Q4H PRN PRN Reason: Headache/Fever or Pain Last Admin: 01/29/18 00:59 Dose: 650 mg Hydrocodone Bitart/Acetaminophen ([place] 5/325) 1 tab PO Q4H PRN PRN Reason: Moderate Pain (4-6) Last Admin: 01/30/18 16:19 Dose: 1 tab Hydrocodone Bitart/Acetaminophen ([place] 7.5/325) 1 tab PO Q4H PRN PRN Reason: Severe Pain (7-10) Last Admin: 02/02/18 10:27 Dose: 1 tab Bicalutamide (Casodex) 50 mg PO DAILY [facility] Last Admin: 02/02/18 09:23 Dose: 50 mg Calcium Carbonate (Tums) 1,000 mg PO Q4H PRN PRN Reason: Heartburn or Indigestion Clonidine (Catapres) 0.1 mg PO Q4H PRN PRN Reason: Systolic BP > 180 Diltiazem HCl (Cardizem) 30 mg PO BID [facility] Last Admin: 02/02/18 09:24 Dose: 30 mg Dronabinol (Marinol) 2.5 mg PO BID-AC [facility] Last Admin: 02/02/18 17:45 Dose: 2.5 mg Famotidine (Pepcid) 20 mg PO BID [facility] Last Admin: 02/02/18 09:24 Dose: 20 mg Finasteride (Proscar) 5 mg PO DAILY [facility] Last Admin: 02/02/18 09:24 Dose: 5 mg Fludrocortisone Acetate (Florinef) 0.1 mg PO DAILY [facility] Last Admin: 02/02/18 09:28 Dose: 0.1 mg Heparin Sodium (Porcine) (Heparin) 5,000 units SC BID [facility] Last Admin: 02/02/18 09:34 Dose: 5,000 units Ampicillin Sodium 2 gm/ Sodium (Chloride) 100 mls @ 200 mls/hr IVPB Q6HR [facility] Last Admin: 02/02/18 17:44 Dose: 100 mls Ketoconazole (Nizoral) 400 mg PO TID [facility] Last Admin: 02/02/18 15:37 Dose: 400 mg Labetalol HCl (Normodyne) 10 mg SLOW IVP Q4H PRN PRN Reason: Systolic BP > 180 Magnesium Chloride (Slow-Mag) 64 mg PO BID [facility] Last Admin: 02/02/18 09:23 Dose: 64 mg Ondansetron HCl (Zofran Odt) 4 mg PO Q6H PRN PRN Reason: Nausea/Vomiting Ondansetron HCl (Zofran) 4 mg IVP Q6H PRN PRN Reason: Nausea/Vomiting Last Admin: 01/30/18 21:56 Dose: 4 mg Phosphorus (Kphos Neutral) 250 mg PO TID[facility] Last Admin: 02/02/18 17:44 Dose: 250 mg Polyethylene Glycol (Miralax) 17 gm PO DAILY [facility] Last Admin: 02/02/18 09:23 Dose: 17 gm Prednisone (Prednisone) 10 mg PO QAM[facility] Last Admin: 02/02/18 09:25 Dose: 10 mg Senna/Docusate Sodium (Senokot S) 1 tab PO BID [facility] Last Admin: 02/02/18 09:24 Dose: 1 tab Sodium Chloride (Flush - Normal Saline) 10 ml IVF PRN PRN PRN Reason: Saline Flush Last Admin: 02/02/18 05:25 Dose: 10 ml Tamsulosin HCl (Flomax) 0.4 mg PO [facility] Last Admin: 02/01/18 20:12 Dose: 0.4 mg
[2018-02-03] MEDS: Ampicillin 2 GM in Sodium Chloride 0.9% 100 ML IVPB SCH ×3 (00:06→12:21)
[2018-02-03] MEDS: Magnesium Chloride 64 MG TAB PO SCH ×2 (00:06→10:04)
[2018-02-03] MEDS: Senokot S 8.6-50 MG TAB PO SCH ×2 (00:07→10:06)
[2018-02-03] MEDS: Tamsulosin HCl 0.4 MG CAP PO SCH (00:08)
[2018-02-03] MEDS: Famotidine 20 MG TAB PO SCH ×2 (00:09→10:05)
[2018-02-03] MEDS: Heparin 5,000 UNITS/ML VIAL SC SCH ×2 (00:09→10:06)
[2018-02-03] MEDS: HYDROcodone/Acetaminophen 7.5/325 mg Tablet PO PRN (00:11)
[2018-02-03] MEDS: HYDROcodone/Acetaminophen 5/325 mg Tablet PO PRN (04:53)
[2018-02-03 07:35] VITALS: BP 132/74; TEMP 98.4
[2018-02-03] MEDS: predniSONE 20 MG TAB PO SCH (08:08)
[2018-02-03] MEDS: K-Phos Neutral 250 MG TAB PO SCH ×2 (08:08→12:20)
[2018-02-03] MEDS: Dronabinol 2.5 MG CAP PO SCH (08:09)
[2018-02-03] MEDS: Fludrocortisone Acetate 0.1 MG TAB PO SCH (10:05)
[2018-02-03] MEDS: Bicalutamide 50 MG TAB PO SCH (10:06)
[2018-02-03] MEDS: Polyethylene Glycol 3350 17 GM Packet PO SCH (10:06)
[2018-02-03] MEDS: Finasteride 5 MG TAB PO SCH (10:06)
--- NOTE | 2018-02-03 12:09 | PRG ---
DATE OF SERVICE: 02/03/2018 SUBJECTIVE: The patient has done well while in the hospital. He did have some concerns of hypoxia which delayed his stay, but he otherwise has been in a set up for discharge. He has no complaints and feels like he is breathing well without any concerns for shortness of breath. The catheter has been draining well. OBJECTIVE: VITAL SIGNS: He has been afebrile, borderline tachycardic and 93% on room air, blood pressure 132/74. GENITOURINARY: He has had more than a liter out per day through the Zurita, which is draining yellow urine. ASSESSMENT AND PLAN: We reviewed how not sure it makes too much difference if he goes home on the ketoconazole and that does require supplemental medications for this, so from my standpoint, he is fine to go home with just the Casodex, but should continue this until and through his Lupron injection which we will supply as an outpatient. He should stay on his finasteride and tamsulosin as well and I reviewed all of this with the patient. Certainly, once the Lupron is given, the ketoconazole should be weaned or stopped. No supplemental medications related to this would be indicated at that time unless steroids were added on from an oncologic standpoint and their medications. We also reviewed attempting a voiding trial after the Lupron has been circulating for 2- 3 weeks and attempt to have him spontaneously void. All questions were answered. MACEYD
--- NOTE | 2018-02-03 13:14 | DIS ---
DATE OF ADMISSION: 01/27/2018 DATE OF DISCHARGE: 02/03/2018 DISCHARGE DISPOSITION: half-way facility, to be followed by Dr. Kong. FOLLOWUP: 1. Follow up with Urology, Dr. Stafford on 02/23/2018 at 3:00 p.m. 2. Follow up with Oncology, Dr. Dowell after 2 weeks, please call office for appointment. ALLERGIES: No known drug allergies. DISCHARGE MEDICATIONS: Amoxicillin 500 mg three times daily for the next 10 days, Casodex 50 mg dia y, aspirin 81 mg daily, Cardizem 30 mg twice a day, dronabinol 2.5 mg b.i.d., Pepcid 20 mg b.i.d., fi nasteride 5 mg daily, Florinef 0.1 mg daily, heparin 5000 units b.i.d. for DVT prophylaxis, Zahl 7.5 mg as needed, ketoconazole 400 mg three times daily, K-Phos Neutral 250 mg daily, Slow-Mag 64 mg b.i .d., multivitamin 1 tablet daily, MiraLax 17 grams daily, Prednisone 10 mg daily, Senokot-S 1 tablet b.i.d., Flomax 0.4 mg daily. The patient was seen and examined on the day of discharge, denies any new complaints, no chest pain, shortness of breath, palpitations reported. BRIEF HOSPITAL COURSE: Patient is a 67-year-old male with long history of untreated prostate cancer, chronic urinary retention for the last one year, who presented to the hospital with generalized weak ness, fever, chills of 1 day duration. Please note that the patient had some problems with the Zurita catheter 4 days ago. He discontinued Zurita catheter without seeking medical attention. His tempera ture in the emergency room was 103.2 with pulse rate of 116. Please refer to the history and physica l for further details. The patient was admitted to the hospital with a diagnosis of sepsis with acute organ dysfunction/acut e pyelonephritis. His blood culture 2/2 and urine culture was positive for Enterococcus. He was ini tially started on broad spectrum antibiotics and that was changed to IV ampicillin per Dr. Wang. He will continue amoxicillin for a total of 2 weeks' duration. The patient had a CT stone protocol in the emergency room that showed bulky retroperitoneal adenopath y. He was seen by Urology, Dr. Stafford. He has been started on Casodex as well as ketoconazole for a drenal suppression. To prevent adrenal crisis, he has been started on prednisone with fludrocortison e. He will see Dr. Stafford after 2 weeks for Lupron injection. Ketoconazole can probably be disconti nued at that time. Prednisone with fludrocortisone can be discontinued after a few days of discontin uation of ketoconazole. He also developed volume overload, probably secondary to IV fluids that reso lved with IV diuretics and discontinuation of IV fluids. Echocardiogram showed normal left ventricul ar ejection fraction of 55%-60%. He was also evaluated by Oncology during this hospital stay. Due t o poor appetite, he has been started on dronabinol. He has been cleared by consultants for discharge . FINAL DIAGNOSES: 1. Sepsis secondary to Enterococcus urinary tract infection/acute pyelonephritis with Enterococcus b acteremia. 2. Chronic urinary retention with indwelling Zurita catheter. Dr. Stafford is planning to do a voiding trial after 2 weeks. 3. Electrolyte abnormalities. The patient had hyponatremia, hypokalemia, and hypomagnesemia. 4. Prostate cancer with metastasis. Patient had bone scan that showed calvarial, spinal, rib, humer al, sternal and femoral metastasis. 5. Chronic pain syndrome. 6. Nephrolithiasis in the lower pole of the right kidney. 7. Moderate protein calorie malnutrition. 8. Back pain secondary to metastasis. 9. Elevated troponins in the indeterminate range secondary to volume overload. 10. Acute kidney injury with creatinine of 3.26 on admission. His creatinine at discharge is 0.97. 11. Generalized weakness secondary to #1. 12. Familial tremors. 13. Degenerative joint disease. 14. Chronic anemia. 15. Elevated alkaline phosphatase, probably secondary to metastasis. 16. Metabolic acidosis secondary to #1. Total time coordinating the discharge of this patient was 40 minutes. The case was discussed in [facility] ilegregory with Dr. Kong who accepted the patient.
--- NOTE | 2018-02-04 11:16 | PQF ---
TERRIE ALVARADO MALIK MD [id number] [facility]-[id number] CLINICAL DOCUMENTATION CLARIFICATION FORM: POST DISCHARGE Addendum to original discharge summary date: ____ Late entry note date: __ Your assistance is needed to clarify if the Pyelonephritis is due to indwelling ramirez catheter. Patient removed withour seeking medical attention 4 days prior to admission Please exercise your independent, professional judgment in responding to the clarification form. Clinical indicators are provided on the bottom of this form for your review Please check appropriate box(s): [ x] UTI/acute pyelonephritis please specify if due to or related to (as applicable): [x ] Indwelling catheter [ ] Unable to determine etiology In addition, please specify: Present on Admission (POA): [ x] Yes [ ] No [ ] Unable to determine For continuity of documentation, please document condition throughout progress notes and discharge summary. Thank You. CLINICAL INDICATORS - SIGNS / SYMPTOMS / LABS Positive urinalysis Previous presence of ramirez cath Fever Documentation: UTI RISK FACTORS retention with indwelling cath prostate cancer TREATMENT: Antibiotics IVF Ramirez cath removed by patient 4 day prior to admission (This form is maintained as a part of the permanent medical record) 2014 [employer]. All Rights Reserved [email or web address] [phone] [email or web address]
--- NOTE | 2018-02-12 13:59 | EKG ---
Test Reason : Blood Pressure : / mmHG Vent. Rate : 116 BPM Atrial Rate : 116 BPM P-R Int : 158 ms QRS Dur : 074 ms QT Int : 300 ms P-R-T Axes : 009 003 030 degrees QTc Int : 417 ms Sinus tachycardia with occasional Premature ventricular complexes and Fusion complexes Otherwise normal ECG Confirmed by BILL ZACARIAS M.D. ([id number]), deputy editor in chief DIAZ SALGADO ([id number]) on 02/12/2018 1:58:42 PM Referred By: Confirmed By:BILL ZACARIAS M.D.
== END 2018-02-03 12:28 | disposition swing bed (61) | DRG 698 ==
LOC: ERS 10:33 → 2NO 16:32 → ONC 01-30 12:26
PROVIDERS: ADMIT Internal Medicine; ATTEND Internal Medicine
PROC: 3E0 Administration, Physiological Systems and Anatomical Regions, Introduction (ICD-10-PCS; principal; 2018-01-29)
DX: T83.511A Infection and inflammatory reaction due to indwelling urethral catheter, initial encounter (principal); A41.81 Sepsis due to Enterococcus; N10 Acute pyelonephritis; N17.9 Acute kidney failure, unspecified; E87.1 Hypo-osmolality and hyponatremia; E87.2 Acidosis; C79.51 Secondary malignant neoplasm of bone; C77.2 Secondary and unspecified malignant neoplasm of intra-abdominal lymph nodes; E44.0 Moderate protein-calorie malnutrition; N13.8 Other obstructive and reflux uropathy; Y84.6 Urinary catheterization as the cause of abnormal reaction of the patient, or of later complication, without mention of misadventure at the time of the procedure; Y92.9 Unspecified place or not applicable; G89.4 Chronic pain syndrome; N20.0 Calculus of kidney; C61 Malignant neoplasm of prostate; I10 Essential (primary) hypertension; M54.5 Low back pain; I49.3 Ventricular premature depolarization; E87.70 Fluid overload, unspecified; G89.3 Neoplasm related pain (acute) (chronic); R74.8 Abnormal levels of other serum enzymes; D64.9 Anemia, unspecified; B96.20 Unspecified Escherichia coli [E. coli] as the cause of diseases classified elsewhere; E87.6 Hypokalemia; E83.42 Hypomagnesemia; I34.0 Nonrheumatic mitral (valve) insufficiency; G25.0 Essential tremor; M19.90 Unspecified osteoarthritis, unspecified site; R33.8 Other retention of urine; F17.220 Nicotine dependence, chewing tobacco, uncomplicated; Z85.46 Personal history of malignant neoplasm of prostate; Z91.81 History of falling; Z87.440 Personal history of urinary (tract) infections; Z79.899 Other long term (current) drug therapy; Z79.82 Long term (current) use of aspirin; Z86.69 Personal history of other diseases of the nervous system and sense organs; Z87.81 Personal history of (healed) traumatic fracture; Z68.28 Body mass index [BMI] 28.0-28.9, adult
CPT/HCPCS: 36415; 36416; 51702; 71045; 74176; 78306; 80048; 80053; 80069; 81003; 81015; 82805; 83605; 83735; 83880; 84100; 84132; 84153; 84484; 85025; 87040; 87077; 87086; 87149; 87186; 93005; 93306; 94760; 96361; 96365; 96367; A9503; G8978-GP-CM; G8979-GP-CJ; G8987-GO-CK; G8987-GO-CL; G8988-GO-CI; J0290; J0696; J1580; J1644; J2185; J2405; J3370; J3475; J7050; J7506; Q0167